=== PATIENT | female | born 1935 | race Two or more races ===

== ENCOUNTER 2020-03-26 21:16 | Inpatient (IN) | payer MEDICARE, MEDICAID ==
[~2020-03-26] VITALS: Ht 157.5 cm; Wt 52.1 kg
[2020-03-26] MEDS ORDERED: SODIUM CHLORIDE 0.9% 500 ML IV ONE (22:00)
[2020-03-26] MEDS ORDERED: MORPHINE SULFATE 4 MG/ML SYR/VIAL IV ONE (22:00)
[2020-03-26] MEDS ORDERED: InsuLIN REG 1unit/0.01ml Soln (100units/ml) IV ONE (22:00)
[2020-03-26] MEDS ORDERED: cloNIDine HCL 0.1 MG TAB PO ONE (22:00)
[2020-03-26] MEDS ORDERED: ACCU-CHEK COMFORT CURVE STRIP VI ONE (22:15)
[2020-03-26] MEDS ORDERED: MORPHINE SULF INJ 2 MG/ML SYRINGE 1ML IV ONE (23:45)
[2020-03-27 00:32] LABS: Basophils # (auto) 0.1 10 ^3/uL (0-0.2); Basophils % (auto) 0.4 % (0.0-2.0); Eosinophils # (auto) 0.1 10 ^3/uL (0-0.8); Eosinophils % (auto) 0.6 % (0.0-7.0); Hemoglobin 12.8 g/dL (12.2-16.2); Lymphocytes # (auto) 1.7 10 ^3/uL (0.4-5.4); Lymphocytes % (auto) 12.2 % (10.0-50.0); Mean Corpuscular Hemoglobin 26.8 pg (28.0-32.0); Mean Corpuscular Hgb Conc. 32.1 g/dL (32.0-36.0); Mean Corpuscular Volume 83.2 fL (80.0-100.0); Monocytes # (auto) 0.6 10 ^3/uL (0-1.3); Monocytes % (auto) 4.4 % (0.0-12.0); Neutrophils # (auto) 11.5 10 ^3/uL (1.6-8.6); Neutrophils % (auto) 82.4 % (37.0-80.0); Platelet Count (auto) 270 10^3/uL (140-450); Red Cell Distribution Width 14.1 % (11.8-14.3)
[2020-03-27 00:49] LABS: Urine Bacteria FEW /hpf (None Seen); Urine Blood Negative /uL (Negative); Urine Specific Gravity 1.026 (1.001-1.035); Urine WBC 6 /hpf (0 - 5)
[2020-03-27 00:50] LABS: Calcium 8.3 mg/dL (8.5-10.1); Potassium 4.1 mmol/L (3.5-5.1)
[2020-03-27 00:55] LABS: Bilirubin, Total 0.5 mg/dL (0.2-1.0); Total Protein 6.7 g/dL (6.4-8.2)
[2020-03-27] MEDS ORDERED: cefTRIAXone 1GM/50ML D5W 50 ML IV ONE (01:00)
[2020-03-27] MEDS ORDERED: MORPHINE SULFATE 4 MG/ML SYR/VIAL IV ONE (02:15)
[2020-03-27] MEDS ORDERED: cloNIDine HCL 0.1 MG TAB PO PRN (02:30)
[2020-03-27] MEDS ORDERED: DEXTROSE (50%) 50ML SYRG IV PRN ×2 (02:30→12:00)
[2020-03-27] MEDS ORDERED: ACETAMINOPHEN 325 MG TAB PO PRN (02:30)
[2020-03-27] MEDS ORDERED: ONDANSETRON HCL 4 MG/2 ML VIAL IV PRN (02:30)
[2020-03-27 04:00] VITALS: BP 152/59
[2020-03-27] MEDS: MORPHINE SULFATE 4 MG/ML SYR/VIAL IV PRN ×3 (04:03→23:15)
[2020-03-27] MEDS: TEMAZEPAM 15 MG CAP PO PRN ×2 (04:04→22:48)
[2020-03-27] MEDS ORDERED: InsuLIN REG 1unit/0.01ml Soln (100units/ml) SC SCH (06:00)
[2020-03-27] MEDS ORDERED: ACCU-CHEK COMFORT CURVE STRIP VI SCH (06:00)
[2020-03-27 06:02] VITALS: BP 152/54
--- NOTE | 2020-03-27 07:07 | NUR ---
PATIENT WAS ADMITTED FROM THE ER AT 0400. SHE ARRIVED IN [place] AT THE L HIP AND WAS MEDICATED. SHE HAD FALLEN THE DAY BEFORE AND INJURED HER LEFT HIP NOW DIAGNOSED INTRATRONCHANTERIC FRACTURE. PATIENT WAS UNABLE TO GIVE PRECISE HISTORY. SHE WAS HOWEVER ALERT AND ORIENTED X 4. SHE HAD NO OTHER INJURIES. SHE IS SCHEDULED FOR CARDIAC AND ORTHOPEDIC CONSULTS. PATIENT'S DAUGHTER CALLED AT 0600 AND LEFT HER PHONE NUMBER TO BE CONTACTED AFTER THE SURGEON MAY HAVE TAKEN A DECISION TO PRICISE TREATMENT. PATIENT IS NOW SLEEPING AND COMFORTABLE.
--- NOTE | 2020-03-27 07:30 | NUR ---
OPENING SHIFT NOTE Patient comfortably resting in bed, denies pain at this time, AOx4. No S/S of distress noted. Wahl secured below waistline draining clear yellow urine. Bed in low position, Locked and call light within reach. Will continue care.
--- NOTE | 2020-03-27 08:15 | NUR ---
Spoke with Family Spoke with Joan patient's daughter requesting update on mom and wanted to know if patient had been seen by MD. Joan informed patient was seen and admitted by ER doctor and will be seen by hospitalist once they come in for the day. Daughter verbalized understanding.
[2020-03-27 09:00] VITALS: BP 112/56
[2020-03-27] MEDS: FAMOTIDINE 20 MG TAB PO SCH ×2 (11:30→21:15)
[2020-03-27] MEDS: LISINOPRIL 10 MG TAB PO SCH (11:31)
[2020-03-27] MEDS: ACCU-CHEK COMFORT CURVE STRIP VI SCH ×2 (12:00→18:12)
[2020-03-27] MEDS: InsuLIN REG 1unit/0.01ml Soln (100units/ml) SC SCH ×2 (12:30→18:13)
[2020-03-27 13:00] VITALS: BP 118/51
--- NOTE | 2020-03-27 15:00 | NUR ---
Spoke with family Spoke with patient's daughter Joan. Update given regarding patient being seen by Career Development Counselor and needed tests ordered to obtain cardiac Clearance. Joan informs me mom suffers of mild dementia and is not able to fully understand procedures needed or ssurgery information. Joan requesting to speak with the Orthopedic doctor that is on her mom's case. MD [place] paged at this time, message left, awaiting call back.
[2020-03-27 17:00] VITALS: BP 132/53
--- NOTE | 2020-03-27 20:30 | NUR ---
UPDATED FAMILY DAUGHTER YAMILA MCKINNON REGARDING PATIENT PLAN OF CARE.
--- NOTE | 2020-03-27 21:00 | NUR ---
UPDATED FAMILY DAUGHTER MELISSA HAJI PATIENT PLAN OF CARE
[2020-03-27] MEDS: HYDROcodone-ACET 5/325MG TAB PO PRN (21:16)
[2020-03-27 22:00] VITALS: BP 144/47
--- NOTE | 2020-03-27 22:05 | NUR ---
OBTAINED TELEPHONE CONSENT FROM DAUGHTER YAMILA ALVES ALLOWING DR SHENG CASTELLANOS TO PERFROM OPEN REDUCTION INTERNAL FIXATION OF LEFT HIP FRACTURE OF PATIENT JOELLE HAJI UNDER ANESTHISIA AND PATIENT MAY RECEIVE BLOOD AND BLOOD PRODUCTS IF PATIENT REQUIRES TRANSFUSION, TELEPHONE CONSENT WITNESSE BY NURSE MARC VIA TELEPHONE. CONSENTS WITNESSED AND SIGNED PLACED IN CHART. TAMMIE ALVES IS WELL INFORMED AND NO FURTHER QUESTIONS AT THIS TIME.
[2020-03-28] MEDS: MORPHINE SULFATE 4 MG/ML SYR/VIAL IV PRN ×3 (03:46→20:30)
[2020-03-28 05:14] VITALS: BP 125/40
[2020-03-28 06:30] LABS: Basophils # (auto) 0 10 ^3/uL (0-0.2); Basophils % (auto) 0.3 % (0.0-2.0); Eosinophils # (auto) 0.1 10 ^3/uL (0-0.8); Eosinophils % (auto) 0.5 % (0.0-7.0); Hematocrit 36.3 % (36.0-46.0); Hemoglobin 11.7 g/dL (12.2-16.2); Lymphocytes # (auto) 1.5 10 ^3/uL (0.4-5.4); Lymphocytes % (auto) 13.4 % (10.0-50.0); Mean Corpuscular Hemoglobin 27.2 pg (28.0-32.0); Mean Corpuscular Hgb Conc. 32.2 g/dL (32.0-36.0); Mean Corpuscular Volume 84.3 fL (80.0-100.0); Monocytes # (auto) 0.9 10 ^3/uL (0-1.3); Monocytes % (auto) 7.7 % (0.0-12.0); Neutrophils # (auto) 8.6 10 ^3/uL (1.6-8.6); Neutrophils % (auto) 78.1 % (37.0-80.0); Platelet Count (auto) 210 10^3/uL (140-450); Red Blood Cells 4.31 10^6/uL (4.0-5.20); Red Cell Distribution Width 14.1 % (11.8-14.3)
[2020-03-28] MEDS: ACCU-CHEK COMFORT CURVE STRIP VI SCH ×5 (06:30→23:12)
[2020-03-28] MEDS: InsuLIN REG 1unit/0.01ml Soln (100units/ml) SC SCH ×5 (06:31→23:11)
[2020-03-28 06:50] LABS: Potassium 4.7 mmol/L (3.5-5.1)
[2020-03-28 07:12] LABS: BUN/Creatinine Ratio 20.4; Calcium 8.3 mg/dL (8.5-10.1)
[2020-03-28] MEDS ORDERED: ceFAZolin 1GM/50ML 50 ML IV ONE (07:12)
--- NOTE | 2020-03-28 07:30 | NUR ---
Opening Shift Note ASSUMED CARE OF PATIENT WHO IS IN OR FOR LEFT HIP OPEN REDUCTION INTERNAL FIXATION WITH DR. CASTELLANOS. WILL AWAIT PATIENT TO RETURN FROM OR.
[2020-03-28] MEDS ORDERED: SUCCINYLCHOLINE CHLORIDE 20 MG/ML 10ML VIAL IV ONE (07:33)
[2020-03-28] MEDS ORDERED: ROCURONIUM 10MG/ML 10ML VIAL IV ONE (07:34)
[2020-03-28] MEDS ORDERED: fentaNYL CITRATE 100 MCG/2 ML VL ONE (07:34)
[2020-03-28] MEDS ORDERED: PROPOFOL 10 MG/ML 20 ML IV ONE (07:49)
[2020-03-28] MEDS ORDERED: BUPIVACAINE W/ EPINEPH 0.25% INJ 50ML MDV ONE (08:20)
[2020-03-28] MEDS ORDERED: LACTATED RINGER'S 1,000 ML IV SCH (08:34)
[2020-03-28] MEDS: ceFAZolin 1GM/50ML 50 ML IV SCH ×3 (08:45→20:47)
[2020-03-28] MEDS ORDERED: ONDANSETRON HCL 4 MG/2 ML VIAL IV PRN (09:00)
[2020-03-28] MEDS ORDERED: hydrALAZINE HCL 20 MG/ML VL IV PRN (09:00)
[2020-03-28] MEDS ORDERED: ePHEDrine SULFATE 50 MG/ML AMP IV PRN (09:00)
[2020-03-28] MEDS ORDERED: MORPHINE SULFATE 4 MG/ML SYR/VIAL IV PRN (09:00)
[2020-03-28] MEDS ORDERED: cefTRIAXone 1GM/50ML D5W 50 ML IV SCH (09:00)
--- NOTE | 2020-03-28 09:36 | NUR ---
OR REPORT RECEIVED REPORT FROM TRAFFIC COURT MAGISTRATEABAD SOSA. PATIENT HAD A LEFT HIP INTERNAL FIXATION WITH DR. CASTELLANOS. PATIENT HAD GENERAL ANESTHESIA. LEFT HIP DRESSING IS DRY AND INTACT. GIVEN 1 MG OF MORPHINE FOR PAIN. BS WAS 262 NO COVERAGE GIVEN PER MD ORDER. VS INCLUDED BP 134/47, HR 83, SPO2 95% RA, PATIENT IS DROWSY BUT AWAKE TO NAME. WILL AWAIT PATIENT.
--- NOTE | 2020-03-28 09:45 | NUR ---
BACK FROM OR PATIENT WAS ASSESSED FROM OR TRANSPORT. PATIENT TOLERATED TRANSPORT WITH NO SIGNS OF DISTRESS OR SOB. PATIENT LEFT HIP DRESSING IS CLEAN DRY AND INTACT. PATIENT WAS PLACED ON 2L NC O2 FOR COMFORT. PATIENT DID NOT COMPLAIN OF PAIN OR DISCOMFORT. PATIENT WILL BE CONTINUED TO BE MONITOR.
[2020-03-28 13:00] VITALS: BP 132/55
[2020-03-28] MEDS: LISINOPRIL 10 MG TAB PO SCH (13:10)
[2020-03-28] MEDS: FAMOTIDINE 20 MG TAB PO SCH ×2 (13:10→20:47)
[2020-03-28] MEDS: ENOXAPARIN SOD 40 MG/0.4 ML SYRINGE SC SCH (13:11)
[2020-03-28] MEDS: SODIUM CHLOR 0.9% PF (SALINE LOCK) 10ML VIAL/SYR IV SCH ×2 (14:48→20:47)
[2020-03-28] MEDS: LACTATED RINGER'S 1,000 ML IV SCH (15:15)
[2020-03-28 17:00] VITALS: BP 116/56
[2020-03-28 22:00] VITALS: BP 127/52
[2020-03-28] MEDS: HYDROcodone-ACET 5/325MG TAB PO PRN (23:12)
[2020-03-28] MEDS: INSULIN LANTUS (GLARGINE) 1 /0.01ml (100units/ml) SC SCH (23:13)
[2020-03-29] MEDS: LACTATED RINGER'S 1,000 ML IV SCH (04:55)
[2020-03-29 05:00] VITALS: BP 141/54
[2020-03-29] MEDS: SODIUM CHLOR 0.9% PF (SALINE LOCK) 10ML VIAL/SYR IV SCH ×3 (05:13→19:50)
[2020-03-29] MEDS: ACCU-CHEK COMFORT CURVE STRIP VI SCH ×3 (05:43→18:02)
[2020-03-29] MEDS: InsuLIN REG 1unit/0.01ml Soln (100units/ml) SC SCH ×3 (05:45→18:02)
[2020-03-29 05:48] LABS: Basophils # (auto) 0 10 ^3/uL (0-0.2); Basophils % (auto) 0.3 % (0.0-2.0); Eosinophils # (auto) 0 10 ^3/uL (0-0.8); Eosinophils % (auto) 0.4 % (0.0-7.0); Hematocrit 31.2 % (36.0-46.0); Hemoglobin 10.1 g/dL (12.2-16.2); Lymphocytes # (auto) 2.5 10 ^3/uL (0.4-5.4); Mean Corpuscular Hemoglobin 27.1 pg (28.0-32.0); Mean Corpuscular Hgb Conc. 32.3 g/dL (32.0-36.0); Mean Corpuscular Volume 83.8 fL (80.0-100.0); Monocytes % (auto) 8.8 % (0.0-12.0); Neutrophils # (auto) 8.3 10 ^3/uL (1.6-8.6); Neutrophils % (auto) 69.5 % (37.0-80.0); Platelet Count (auto) 195 10^3/uL (140-450); Red Blood Cells 3.72 10^6/uL (4.0-5.20); Red Cell Distribution Width 14.2 % (11.8-14.3); White Blood Cell 11.9 10^3/uL (4.4-10.8)
[2020-03-29 06:12] LABS: Calcium 7.7 mg/dL (8.5-10.1); Potassium 3.5 mmol/L (3.5-5.1)
--- NOTE | 2020-03-29 07:30 | NUR ---
Opening Shift Note Assumed care of patient, awake and alert. No S/S of distress/SOB or pain. Instructed on POC and to call for assist PRN, will continue to monitor for changes Q1hr and PRN. Bed is locked and in lowest position. Bed alarm is on due to patients period of confusion. Call light within reach.
[2020-03-29 08:00] VITALS: BP 128/64
[2020-03-29] MEDS: HYDROcodone-ACET 5/325MG TAB PO PRN (08:49)
[2020-03-29] MEDS ORDERED: INSLANTI SC ×2 (08:58)
[2020-03-29] MEDS ORDERED: LISI-646 PO (08:58)
[2020-03-29 09:00] VITALS: BP 128/64
--- NOTE | 2020-03-29 09:00 | NUR ---
DRESSING CHANGED DRESSING CHANGED OF LEFT HIP OR. INCISIONS APPEAR WELL APPROXIMATED WITH ADAMA. THERE IS A TOTAL OF THREE INCISION SITES. NO SIGNS OF INFECTION. PATIENT TOLERATED DRESSING CHANGE WITH NO SIGNS OF DISTRESS OR PAIN. A TOTAL OF TWO PRIMAFORM DRESSINGS APPLIED TO INCISION SITES. WILL CONTINUE TO MONITOR.
[2020-03-29] MEDS: FAMOTIDINE 20 MG TAB PO SCH ×2 (10:22→19:50)
[2020-03-29] MEDS: ENOXAPARIN SOD 40 MG/0.4 ML SYRINGE SC SCH (10:23)
[2020-03-29] MEDS: LISINOPRIL 10 MG TAB PO SCH (10:23)
[2020-03-29] MEDS ORDERED: traMADol HCL 50 MG TAB PO PRN (12:30)
[2020-03-29] MEDS ORDERED: ZOLPIDEM TARTRATE 5 MG TAB PO PRN (12:30)
[2020-03-29 13:00] VITALS: BP 114/48
--- NOTE | 2020-03-29 14:12 | NUR ---
assessment re: ss consult DC planning. Patient is a 84 year old female who is confused. Per patients daughter Joan prior to admission patient lived home with her and her and functioned with assistance. Per Joan patient has never needed any DME. Per Joan patient fell at home after returning from the store with family. Patient has fractured her hip. Per Joan patient will return home on discharge. Per Joan she has refused SNF. Patient will need a ss consult for home health and a fww. I have provided Joan resources for [facility]. Per Joan they are new to the area. Per Joan Patients PCP is Dr Carlo Clifton in [place]. I will informed Dr Lynn of ss consult need. Joan verbalized understanding and agreed to discharge plan home. Addendum: 03/29/20 at 1417 by Lizzy DRISCOLL Amended: Links added.
--- NOTE | 2020-03-29 15:50 | NUR ---
DAUGHTER YAMILA PHONE CALL RECEIVED FROM DAUGHTER YAMILA REGARDING POC OF PATIENT. DAUGHTER WOULD LIKE PATIENT DC HOME NOT TO A FPC, DAUGHTER WILL BE SOLUTION COORDINATOR. DAUGHTER REQUESTED EQUIPMENT FOR PATIENT SUCH WALKER AND TOILET COMMODE. WILL AWAIT ORDERS FOR DC AND CANCELING MACHINE OPERATOR.
[2020-03-29 16:28] VITALS: BP 114/61
--- NOTE | 2020-03-29 17:45 | NUR ---
CURRAN DC CURRAN WAS DC WITH CLEAN TECHNIQUE BASED ON DR. PAULINO ORDERS. CURRAN WAS INTACT. NO SIGNS OF INFECTION. PATIENT TOLERATED CURRAN REMOVAL WELL WITH NO PAIN OR SIGNS OF DISTRESS. WILL CONTINUE TO MONITOR URINE OUTPUT.
[2020-03-29] MEDS: MORPHINE SULFATE 4 MG/ML SYR/VIAL IV PRN (19:50)
[2020-03-29] MEDS: TEMAZEPAM 15 MG CAP PO PRN (21:09)
[2020-03-29] MEDS: traMADol HCL 50 MG TAB PO PRN (21:24)
[2020-03-29] MEDS: INSULIN LANTUS (GLARGINE) 1 /0.01ml (100units/ml) SC SCH (21:37)
[2020-03-29 22:00] VITALS: BP 131/55
[2020-03-30] MEDS: ACCU-CHEK COMFORT CURVE STRIP VI SCH ×4 (00:19→17:38)
[2020-03-30 05:00] VITALS: BP 113/47
[2020-03-30] MEDS: SODIUM CHLOR 0.9% PF (SALINE LOCK) 10ML VIAL/SYR IV SCH ×3 (05:48→21:42)
[2020-03-30] MEDS: InsuLIN REG 1unit/0.01ml Soln (100units/ml) SC SCH ×4 (05:54→17:48)
--- NOTE | 2020-03-30 07:30 | NUR ---
Opening Shift Note Assumed care of patient, resting comfortably. No S/S of distress/SOB or pain on room air. Instructed on POC and to call for assist PRN, will continue to monitor for changes Q1hr and PRN. Bed in low and locked position, rails up x2, no-slip socks on.
--- NOTE | 2020-03-30 08:21 | NUR ---
REPORT RECEIVED from Alisa. Assumed care of patient. Patient is sitting in the chair at bedside. She was updated on the plan of care and verbalized understanding. Patient was encouraged to call before ambulation and verbalized understanding.
[2020-03-30] MEDS: traMADol HCL 50 MG TAB PO PRN (08:58)
[2020-03-30 09:00] VITALS: BP 133/51
[2020-03-30] MEDS: ENOXAPARIN SOD 40 MG/0.4 ML SYRINGE SC SCH (09:41)
[2020-03-30] MEDS: FAMOTIDINE 20 MG TAB PO SCH ×2 (09:43→21:34)
[2020-03-30] MEDS: LISINOPRIL 10 MG TAB PO SCH (09:43)
--- NOTE | 2020-03-30 10:20 | NUR ---
PATIENT WORKING WITH PT Per annelise patient walked 4ft and is back in the chair at bedside.
--- NOTE | 2020-03-30 12:36 | NUR ---
Est energy needs [id number] kcal (30-35 kcal/kg BW 50kg) Est protein need 50-60g (1-1.2g/kg BW 50kg d/t inc needs for healing) will reassess prn. Addendum: 03/30/20 at [address] Amended: Links added.
[2020-03-30 13:04] VITALS: BP 137/58
--- NOTE | 2020-03-30 14:51 | NUR ---
re-assessment Per ss consult home PT. Per Joan patients daughter she has no preference on who provides service. MD order has been sent to [facility]. Per Quincy she will schedule patient for 04/01/2020. Joan has been notified. Addendum: 03/30/20 at 1452 by Lizzy Franklin Amended: Links added.
--- NOTE | 2020-03-30 14:51 | NUR ---
D/C Planning Regarding SS consult for home walker. faxed clinical information to [facility]. Per Keely with [facility] they will deliver walker to bedside at 15:00. Informed RN Francine.
--- NOTE | 2020-03-30 15:43 | NUR ---
WALKER DELIVERED TO BEDSIDE
[2020-03-30 16:42] VITALS: BP 116/54
--- NOTE | 2020-03-30 21:05 | NUR ---
Patient was trying to get out of bed. Upon speaking to her she stated she was trying to stand up. I reoriented patient that she was in hospital and just had a procedure done to her left hip and advised her to stay in bed unless she calls for help first. Bed alarm placed on. Will continue to monitor.
[2020-03-30] MEDS: TEMAZEPAM 15 MG CAP PO PRN (21:35)
[2020-03-30] MEDS: INSULIN LANTUS (GLARGINE) 1 /0.01ml (100units/ml) SC SCH (21:42)
[2020-03-30 22:00] VITALS: BP 135/60
[2020-03-31] MEDS: ACCU-CHEK COMFORT CURVE STRIP VI SCH ×3 (00:16→11:45)
--- NOTE | 2020-03-31 00:19 | NUR ---
Upon checking on patient she had removed IV and was lying on floor. IV catheter tip was still intact.
--- NOTE | 2020-03-31 02:05 | NUR ---
IV insertion IV access obtained, via clean sterile technique by inserting 22 gauge catheter at left wrist after 2 attempts. IV secured properly. No trauma to site. Patient tolerated procedure well.
[2020-03-31] MEDS: MORPHINE SULFATE 4 MG/ML SYR/VIAL IV PRN (03:04)
[2020-03-31 05:00] VITALS: BP 136/67
[2020-03-31] MEDS: InsuLIN REG 1unit/0.01ml Soln (100units/ml) SC SCH ×2 (06:00)
[2020-03-31] MEDS: SODIUM CHLOR 0.9% PF (SALINE LOCK) 10ML VIAL/SYR IV SCH (06:05)
--- NOTE | 2020-03-31 07:30 | NUR ---
Opening Shift Note Assumed care of patient, awake and pleasantly confused. No S/S of distress/SOB or pain. Instructed on POC and to call for assist PRN, will continue to monitor for changes Q1hr and PRN.
--- NOTE | 2020-03-31 07:35 | NUR ---
Patient has no IV access at this time. Will start new IV if patient is not discharged.
[2020-03-31 09:00] VITALS: BP 126/59
[2020-03-31] MEDS: ENOXAPARIN SOD 40 MG/0.4 ML SYRINGE SC SCH (10:13)
[2020-03-31] MEDS: FAMOTIDINE 20 MG TAB PO SCH (10:13)
[2020-03-31] MEDS: LISINOPRIL 10 MG TAB PO SCH (10:14)
[2020-03-31] MEDS: traMADol HCL 50 MG TAB PO PRN (11:46)
[2020-03-31 13:00] VITALS: BP 132/66
--- NOTE | 2020-03-31 14:10 | NUR ---
Dr. Lynn in to see patient as hospitalist.
[2020-03-31 14:26] VITALS: BP 136/66
--- NOTE | 2020-03-31 15:55 | NUR ---
Spoke with patient's daughter Joan. Informed her that the discharge is completed and she can come take patient home. Joan states she needs a wheel chair to get the patient from the car to the house and she was told she could borrow one from the hospital. Joan was informed that the walker has been delivered to the bedside. Informed Joan that the hospital does not lend out wheelchairs. This RN offered to speak with Dr. Lynn and see if we can get a wheelchair for home. Explained to Joan that it might take until tomorrow to get the wheelchair. Daughter angry, states she will come and get the patient and if anything happens when she gets home she will blame us. Dr. Lynn informed. He states that insurance will pay for only one DME. Will inform the patient's daughter.
--- NOTE | 2020-03-31 17:10 | NUR ---
Discharge instructions given as ordered. Encourage to follow up with PMD as instructed. All questions and concerns addressed. Patient verbalized understanding. Medication reconciliation form completed and copy given to patient. Patient taken to vehicle via wheelchair with all personal belongings, accompanied by staff and family member. No distress noted at time of departure. Walker sent home with patient.
== END 2020-03-31 17:11 | disposition home health service (06) | DRG 481 ==
LOC: EDBD 21:16 → ER 21:29 → WEST WING 21:30
PROVIDERS: ADMIT Nurse Practitioner; ATTEND Internal Medicine
PROC: 0QS734Z Reposition Left Upper Femur with Internal Fixation Device, Percutaneous Approach (ICD-10-PCS; principal; 2020-03-28 07:31)
DX: S72.142A Displaced intertrochanteric fracture of left femur, initial encounter for closed fracture (principal); N39.0 Urinary tract infection, site not specified; E11.65 Type 2 diabetes mellitus with hyperglycemia; I10 Essential (primary) hypertension; I44.7 Left bundle-branch block, unspecified; I70.0 Atherosclerosis of aorta; Z79.4 Long term (current) use of insulin; Z79.899 Other long term (current) drug therapy; Z20.828 Contact with and (suspected) exposure to other viral communicable diseases; W18.30XA Fall on same level, unspecified, initial encounter; Y93.89 Activity, other specified; Y92.89 Other specified places as the place of occurrence of the external cause; Y99.0 Civilian activity done for income or pay
CPT/HCPCS: 36415; 71045; 73502; 76000; 80048; 80053; 81001; 82962; 83036; 83880; 85025; 85610; 85730; 86850; 86900; 86901; 87086; 93005; 93306; 96365; 96375; 97110; 97116; 97163; 97530; A4565; C1713; G0378; J0330; J0690; J0696; J1815; J2405; J2704

== ENCOUNTER 2020-05-15 18:11 | Inpatient (IN) | payer MEDICARE, MEDICAID ==
[~2020-05-15] VITALS: Ht 162.6 cm; Wt 51.0 kg
[~2020-05-15 18:11] MED LIST: INSLANTI SC; LISI-646 PO
[2020-05-15 20:54] LABS: Eosinophils # (auto) 0.1 10 ^3/uL (0-0.8); Eosinophils % (auto) 1.4 % (0.0-7.0); Hematocrit 39.6 % (36.0-46.0); Lymphocytes # (auto) 2.2 10 ^3/uL (0.4-5.4)
[2020-05-15 20:56] LABS: Basophils # (auto) 0 10 ^3/uL (0-0.2); Basophils % (auto) 0.4 % (0.0-2.0); Hemoglobin 12.9 g/dL (12.2-16.2); Lymphocytes % (auto) 21.2 % (10.0-50.0); Mean Corpuscular Hemoglobin 27.3 pg (28.0-32.0); Mean Corpuscular Hgb Conc. 32.5 g/dL (32.0-36.0); Mean Corpuscular Volume 83.9 fL (80.0-100.0); Monocytes # (auto) 0.8 10 ^3/uL (0-1.3); Monocytes % (auto) 7.4 % (0.0-12.0); Neutrophils # (auto) 7.3 10 ^3/uL (1.6-8.6); Neutrophils % (auto) 69.6 % (37.0-80.0); Platelet Count (auto) 323 10^3/uL (140-450); Red Blood Cells 4.73 10^6/uL (4.0-5.20); Red Cell Distribution Width 14.1 % (11.8-14.3); White Blood Cell 10.4 10^3/uL (4.4-10.8)
[2020-05-15 21:04] LABS: Albumin 3.2 g/dL (3.4-5.0); Calcium 8.9 mg/dL (8.5-10.1); Potassium 3.8 mmol/L (3.5-5.1)
[2020-05-15 21:08] LABS: BUN/Creatinine Ratio 19.4; Bilirubin, Total 0.6 mg/dL (0.2-1.0); INR 1.14 (0.9-1.15); Partial Thromboplastin Time 28.5 sec (23.0-31.2); Total Protein 7.5 g/dL (6.4-8.2)
[2020-05-15] MEDS ORDERED: IOHEXOL 350 MG/ML 100ML IJ ONE (21:35)
[2020-05-15] MEDS ORDERED: ENOXAPARIN SOD 60 MG/0.6 ML SYRINGE SC SCH (22:00)
[2020-05-15] MEDS ORDERED: ONDANSETRON HCL 4 MG/2 ML VIAL IV PRN (22:15)
[2020-05-15] MEDS ORDERED: ACETAMINOPHEN 325 MG TAB PO PRN (22:15)
[2020-05-15] MEDS ORDERED: DEXTROSE (50%) 50ML SYRG IV PRN (22:15)
[2020-05-15] MEDS ORDERED: TEMAZEPAM 15 MG CAP PO PRN (22:15)
[2020-05-15] MEDS ORDERED: HYDROcodone-ACET 5/325MG TAB PO PRN (22:15)
[2020-05-16] VITALS (7 sets, daily range): BP systolic 118–133; BP diastolic 41–70
[2020-05-16] MEDS ORDERED: ATOR10TA PO (01:23)
[2020-05-16] MEDS ORDERED: ASPI-543 PO (01:23)
[2020-05-16 05:36] LABS: Basophils # (auto) 0.1 10 ^3/uL (0-0.2); Basophils % (auto) 0.6 % (0.0-2.0); Hemoglobin 12.5 g/dL (12.2-16.2); Monocytes # (auto) 0.7 10 ^3/uL (0-1.3); Red Blood Cells 4.65 10^6/uL (4.0-5.20)
[2020-05-16 05:39] LABS: Eosinophils # (auto) 0.1 10 ^3/uL (0-0.8); Eosinophils % (auto) 1.6 % (0.0-7.0); Hematocrit 38.8 % (36.0-46.0); Lymphocytes # (auto) 2.5 10 ^3/uL (0.4-5.4); Lymphocytes % (auto) 27.8 % (10.0-50.0); Mean Corpuscular Hgb Conc. 32.3 g/dL (32.0-36.0); Mean Corpuscular Volume 83.6 fL (80.0-100.0); Monocytes % (auto) 7.9 % (0.0-12.0); Neutrophils # (auto) 5.6 10 ^3/uL (1.6-8.6); Neutrophils % (auto) 62.1 % (37.0-80.0); Platelet Count (auto) 312 10^3/uL (140-450); Red Cell Distribution Width 14.6 % (11.8-14.3)
[2020-05-16] MEDS ORDERED: ENOXAPARIN SOD 60 MG/0.6 ML SYRINGE SC SCH (05:45)
[2020-05-16 05:54] LABS: Calcium 8.8 mg/dL (8.5-10.1); Potassium 3.7 mmol/L (3.5-5.1)
[2020-05-16] MEDS: ACCU-CHEK COMFORT CURVE STRIP VI SCH ×4 (06:38→21:28)
[2020-05-16] MEDS: InsuLIN REG 1unit/0.01ml Soln (100units/ml) SC SCH ×4 (06:38→21:33)
[2020-05-16] MEDS: LISINOPRIL 10 MG TAB PO SCH (10:46)
[2020-05-16] MEDS: ENOXAPARIN SOD 60 MG/0.6 ML SYRINGE SC SCH ×2 (10:47→21:29)
[2020-05-16] MEDS: FAMOTIDINE 20 MG TAB PO SCH (10:47)
[2020-05-16] MEDS: ATORVASTATIN 20 MG TAB PO SCH (21:28)
[2020-05-17 04:52] VITALS: BP 99/55
[2020-05-17] MEDS: InsuLIN REG 1unit/0.01ml Soln (100units/ml) SC SCH ×4 (07:00→22:34)
[2020-05-17] MEDS: ACCU-CHEK COMFORT CURVE STRIP VI SCH ×4 (07:02→22:24)
[2020-05-17 08:00] VITALS: BP 133/62
[2020-05-17 09:00] VITALS: BP 117/49
[2020-05-17] MEDS: LISINOPRIL 10 MG TAB PO SCH (10:00)
[2020-05-17] MEDS: FAMOTIDINE 20 MG TAB PO SCH (10:28)
[2020-05-17] MEDS: ENOXAPARIN SOD 60 MG/0.6 ML SYRINGE SC SCH ×2 (10:28→22:07)
[2020-05-17 12:00] VITALS: BP 128/67
[2020-05-17 17:00] VITALS: BP 115/54
[2020-05-17] MEDS: ATORVASTATIN 20 MG TAB PO SCH (22:07)
[2020-05-18] MEDS: ACCU-CHEK COMFORT CURVE STRIP VI SCH ×2 (05:50→11:41)
[2020-05-18] MEDS: InsuLIN REG 1unit/0.01ml Soln (100units/ml) SC SCH ×2 (05:50→11:30)
[2020-05-18 09:00] VITALS: BP 131/50
[2020-05-18] MEDS ORDERED: APIXABAN 5 MG TAB PO SCH (10:00)
[2020-05-18] MEDS: LISINOPRIL 10 MG TAB PO SCH (10:27)
[2020-05-18] MEDS: FAMOTIDINE 20 MG TAB PO SCH (10:27)
[2020-05-18 13:00] VITALS: BP 134/53
[2020-05-18 14:42] VITALS: BP 131/50
== END 2020-05-18 15:30 | disposition home or self-care (01) | DRG 301 ==
LOC: ER 18:11 → OVERFLOW 18:12 → CENTRAL 23:30
PROVIDERS: ADMIT Nurse Practitioner; ATTEND Family Medicine
DX: I82.402 Acute embolism and thrombosis of unspecified deep veins of left lower extremity (principal); I10 Essential (primary) hypertension; E11.9 Type 2 diabetes mellitus without complications; E78.5 Hyperlipidemia, unspecified; Z96.642 Presence of left artificial hip joint
CPT/HCPCS: 36415; 71275; 80048; 80053; 82962; 85025; 85379; 85610; 85730; 93971; 96372; G0378; J1815

== ENCOUNTER → 2020-06-07 | Outpatient (CLI) | payer MEDICARE, MEDICAID ==
[~2020-06-07] MED LIST changes: +ASPI-543 PO; +ATOR10TA PO
[2020-06-07 10:02] LABS: Basophils # (auto) 0 10 ^3/uL (0-0.2); Basophils % (auto) 0.5 % (0.0-2.0); Eosinophils # (auto) 0.1 10 ^3/uL (0-0.8); Eosinophils % (auto) 1.6 % (0.0-7.0); Hematocrit 39.7 % (36.0-46.0); Lymphocytes # (auto) 2.4 10 ^3/uL (0.4-5.4); Lymphocytes % (auto) 27.6 % (10.0-50.0); Mean Corpuscular Hemoglobin 27.2 pg (28.0-32.0); Mean Corpuscular Hgb Conc. 32.6 g/dL (32.0-36.0); Mean Corpuscular Volume 83.4 fL (80.0-100.0); Monocytes # (auto) 0.5 10 ^3/uL (0-1.3); Monocytes % (auto) 5.9 % (0.0-12.0); Neutrophils # (auto) 5.7 10 ^3/uL (1.6-8.6); Neutrophils % (auto) 64.4 % (37.0-80.0); Platelet Count (auto) 275 10^3/uL (140-450); Red Blood Cells 4.76 10^6/uL (4.0-5.20); Red Cell Distribution Width 14.6 % (11.8-14.3); White Blood Cell 8.8 10^3/uL (4.4-10.8)
[2020-06-07 10:23] LABS: Albumin 3.4 g/dL (3.4-5.0); Calcium 9.2 mg/dL (8.5-10.1); Potassium 4.2 mmol/L (3.5-5.1)
[2020-06-07 10:26] LABS: Urine Bacteria NONE SEEN /hpf (None Seen); Urine Blood Negative /uL (Negative); Urine Specific Gravity 1.011 (1.001-1.035); Urine WBC 17 /hpf (0 - 5)
[2020-06-07 10:28] LABS: BUN/Creatinine Ratio 21.1; Bilirubin, Total 0.6 mg/dL (0.2-1.0); Total Protein 7.2 g/dL (6.4-8.2)
== END | disposition home or self-care (01) ==
LOC: LAB 09:48
PROVIDERS: ATTEND Student in an Organized Health Care Education/Training Program
DX: E11.9 Type 2 diabetes mellitus without complications (principal)
CPT/HCPCS: 36415; 80053; 80061; 81001; 82043; 83036; 84443; 85025

== ENCOUNTER → 2020-10-17 | Outpatient (CLI) | payer MEDICARE, MEDICAID | END | disposition home or self-care (01) | LOC: XY 13:35 | PROVIDERS: ATTEND Student in an Organized Health Care Education/Training Program | DX: I70.202 Unspecified atherosclerosis of native arteries of extremities, left leg (principal); I82.402 Acute embolism and thrombosis of unspecified deep veins of left lower extremity; M79.89 Other specified soft tissue disorders | CPT/HCPCS: 93926; 93971 ==

== ENCOUNTER → 2020-10-19 | Outpatient (CLI) | payer MEDICARE, MEDICAID ==
[2020-10-19 09:15] LABS: Basophils # (auto) 0.1 10 ^3/uL (0-0.2); Basophils % (auto) 0.7 % (0.0-2.0); Eosinophils # (auto) 0.2 10 ^3/uL (0-0.8); Eosinophils % (auto) 3.1 % (0.0-7.0); Hematocrit 38.6 % (36.0-46.0); Lymphocytes # (auto) 2.3 10 ^3/uL (0.4-5.4); Lymphocytes % (auto) 31.1 % (10.0-50.0); Mean Corpuscular Hgb Conc. 33.6 g/dL (32.0-36.0); Mean Corpuscular Volume 83.4 fL (80.0-100.0); Monocytes # (auto) 0.6 10 ^3/uL (0-1.3); Monocytes % (auto) 7.6 % (0.0-12.0); Neutrophils # (auto) 4.2 10 ^3/uL (1.6-8.6); Neutrophils % (auto) 57.5 % (37.0-80.0); Nucleated Red Blood Cells % 0.1 %; Platelet Count (auto) 278 10^3/uL (140-450); Red Blood Cells 4.62 10^6/uL (4.0-5.20); Red Cell Distribution Width 14.9 % (11.8-14.3); White Blood Cell 7.3 10^3/uL (4.4-10.8)
[2020-10-19 09:29] LABS: INR 1.02 (0.9-1.15); Partial Thromboplastin Time 25.8 sec (23.0-31.2)
[2020-10-19 10:03] LABS: Albumin 3.4 g/dL (3.4-5.0); Calcium 8.8 mg/dL (8.5-10.1); Potassium 4.6 mmol/L (3.5-5.1)
[2020-10-19 10:09] LABS: BUN/Creatinine Ratio 18.8; Bilirubin, Total 0.8 mg/dL (0.2-1.0); Total Protein 7.5 g/dL (6.4-8.2)
== END | disposition home or self-care (01) ==
LOC: LAB 08:59
PROVIDERS: ATTEND Student in an Organized Health Care Education/Training Program
DX: E11.9 Type 2 diabetes mellitus without complications (principal); I82.402 Acute embolism and thrombosis of unspecified deep veins of left lower extremity
CPT/HCPCS: 36415; 80053; 80061; 83036; 85025; 85610; 85730

== ENCOUNTER → 2021-03-26 | Outpatient (CLI) | payer MEDICARE, MEDICAID ==
[~2021-03-26] MED LIST changes: -LISI-646 PO; +LISI20TA28 PO
== END | disposition home or self-care (01) ==
LOC: XYW 09:34
PROVIDERS: ATTEND Internal Medicine
DX: I08.3 Combined rheumatic disorders of mitral, aortic and tricuspid valves (principal); I11.9 Hypertensive heart disease without heart failure
CPT/HCPCS: 93306

== ENCOUNTER → 2021-04-10 | Outpatient (CLI) | payer MEDICARE, MEDICAID ==
[~2021-04-10] VITALS: Ht 144.8 cm; Wt 49.9 kg
[~2021-04-10] MED LIST changes: +ADENOSINE 42 MG in GIVE UN-DILUTED 0 ML IV ONE
== END | disposition home or self-care (01) ==
LOC: XY 08:41
PROVIDERS: ATTEND Internal Medicine
DX: I10 Essential (primary) hypertension (principal); I70.0 Atherosclerosis of aorta; I73.9 Peripheral vascular disease, unspecified; E11.9 Type 2 diabetes mellitus without complications; F03.90 Unspecified dementia, unspecified severity, without behavioral disturbance, psychotic disturbance, mood disturbance, and anxiety
CPT/HCPCS: 78452; 93017; A9500; J0153

== ENCOUNTER → 2021-10-30 | Outpatient (CLI) | payer MEDICARE, OTHER ==
[~2021-10-30] MED LIST changes: -ADENOSINE 42 MG in GIVE UN-DILUTED 0 ML IV ONE
[2021-10-30 10:14] LABS: Urine Bacteria FEW /hpf (None Seen); Urine Blood Negative /uL (Negative); Urine Hyaline Cast FEW /lpf (0 - 2); Urine Mucus FEW (None Seen); Urine Specific Gravity 1.017 (1.001-1.035); Urine WBC 60 /hpf (0 - 5); Urine WBC Clumps PRESENT /hpf (None Seen)
[2021-10-30 12:40] LABS: Eosinophils # (auto) 0.1 10 ^3/uL (0-0.8); Eosinophils % (auto) 1.2 % (0.0-7.0); Lymphocytes # (auto) 2.8 10 ^3/uL (0.4-5.4); Monocytes # (auto) 0.7 10 ^3/uL (0-1.3); Neutrophils % (auto) 67.7 % (37.0-80.0)
[2021-10-30 12:47] LABS: Basophils # (auto) 0 10 ^3/uL (0-0.2); Basophils % (auto) 0.3 % (0.0-2.0); Hematocrit 41.6 % (36.0-46.0); Hemoglobin 13.4 g/dL (12.2-16.2); Lymphocytes % (auto) 24.7 % (10.0-50.0); Mean Corpuscular Hemoglobin 26.2 pg (28.0-32.0); Mean Corpuscular Hgb Conc. 32.3 g/dL (32.0-36.0); Mean Corpuscular Volume 81.3 fL (80.0-100.0); Monocytes % (auto) 6.1 % (0.0-12.0); Neutrophils # (auto) 7.7 10 ^3/uL (1.6-8.6); Red Blood Cells 5.11 10^6/uL (4.0-5.20); Red Cell Distribution Width 14.4 % (11.8-14.3); White Blood Cell 11.3 10^3/uL (4.4-10.8)
[2021-10-30 13:01] LABS: Potassium 4.4 mmol/L (3.5-5.1)
[2021-10-30 13:12] LABS: Albumin 3.2 g/dL (3.4-5.0); BUN/Creatinine Ratio 17.7; Bilirubin, Total 0.8 mg/dL (0.2-1.0); Calcium 9.2 mg/dL (8.5-10.1); Total Protein 6.8 g/dL (6.4-8.2)
== END | disposition home or self-care (01) ==
LOC: LAB 09:41
PROVIDERS: ATTEND Student in an Organized Health Care Education/Training Program
DX: E11.9 Type 2 diabetes mellitus without complications (principal); I10 Essential (primary) hypertension
CPT/HCPCS: 36415; 80053; 80061; 81001; 82043; 83036; 84443; 85025

== ENCOUNTER → 2022-03-12 | Outpatient (CLI) | payer MEDICARE, OTHER ==
[2022-03-12 13:35] LABS: Basophils # (auto) 0 10 ^3/uL (0-0.2); Basophils % (auto) 0.6 % (0.0-2.0); Eosinophils # (auto) 0 10 ^3/uL (0-0.8); Eosinophils % (auto) 0.2 % (0.0-7.0); Hematocrit 41.4 % (36.0-46.0); Hemoglobin 13.2 g/dL (12.2-16.2); Lymphocytes # (auto) 1.9 10 ^3/uL (0.4-5.4); Lymphocytes % (auto) 26.7 % (10.0-50.0); Mean Corpuscular Hemoglobin 26.3 pg (28.0-32.0); Mean Corpuscular Hgb Conc. 31.8 g/dL (32.0-36.0); Mean Corpuscular Volume 82.7 fL (80.0-100.0); Monocytes # (auto) 0.9 10 ^3/uL (0-1.3); Monocytes % (auto) 11.9 % (0.0-12.0); Neutrophils # (auto) 4.4 10 ^3/uL (1.6-8.6); Neutrophils % (auto) 60.6 % (37.0-80.0); Red Cell Distribution Width 14.5 % (11.8-14.3); White Blood Cell 7.3 10^3/uL (4.4-10.8)
[2022-03-12 14:27] LABS: Calcium 8.3 mg/dL (8.5-10.1); Potassium 4.1 mmol/L (3.5-5.1)
[2022-03-12 14:33] LABS: Albumin 3.4 g/dL (3.4-5.0); BUN/Creatinine Ratio 15.5; Bilirubin, Total 0.5 mg/dL (0.2-1.0); Total Protein 7.4 g/dL (6.4-8.2)
== END | disposition home or self-care (01) ==
LOC: LAB 13:23
PROVIDERS: ATTEND Student in an Organized Health Care Education/Training Program
DX: N39.0 Urinary tract infection, site not specified (principal); E11.9 Type 2 diabetes mellitus without complications; I10 Essential (primary) hypertension
CPT/HCPCS: 36415; 80053; 83036; 84439; 84443; 85025; 87086

== ENCOUNTER 2022-11-12 13:35 | Inpatient (IN) | payer MEDICARE, OTHER ==
[~2022-11-12] VITALS: Ht 142.2 cm; Wt 47.5 kg
[2022-11-12 15:01] LABS: Basophils # (auto) 0.1 10 ^3/uL (0-0.2); Basophils % (auto) 0.5 % (0.0-2.0); Hemoglobin 12.9 g/dL (12.2-16.2); Monocytes # (auto) 0.8 10 ^3/uL (0-1.3); Red Cell Distribution Width 14.5 % (11.8-14.3)
[2022-11-12 15:03] LABS: Eosinophils # (auto) 0.2 10 ^3/uL (0-0.8); Eosinophils % (auto) 1.9 % (0.0-7.0); Hematocrit 39.3 % (36.0-46.0); Lymphocytes # (auto) 2.4 10 ^3/uL (0.4-5.4); Lymphocytes % (auto) 20.5 % (10.0-50.0); Mean Corpuscular Hemoglobin 27.2 pg (28.0-32.0); Mean Corpuscular Hgb Conc. 32.9 g/dL (32.0-36.0); Mean Corpuscular Volume 82.6 fL (80.0-100.0); Monocytes % (auto) 7.3 % (0.0-12.0); Neutrophils # (auto) 8.1 10 ^3/uL (1.6-8.6); Neutrophils % (auto) 69.8 % (37.0-80.0); Red Blood Cells 4.77 10^6/uL (4.0-5.20); White Blood Cell 11.5 10^3/uL (4.4-10.8)
[2022-11-12 15:19] LABS: Albumin 3.2 g/dL (3.4-5.0); Calcium 8.9 mg/dL (8.5-10.1); Potassium 4.4 mmol/L (3.5-5.1)
[2022-11-12 15:22] LABS: BUN/Creatinine Ratio 18.2
[2022-11-12 15:25] LABS: Bilirubin, Total 0.6 mg/dL (0.2-1.0); Total Protein 6.8 g/dL (6.4-8.2)
[2022-11-12 17:04] LABS: INR 1.01 (0.9-1.15); Partial Thromboplastin Time 27.4 sec (24.6-33.4)
[2022-11-12] MEDS ORDERED: HYDROcodone-ACET 5/325MG TAB PO PRN (18:30)
[2022-11-12] MEDS ORDERED: ACETAMINOPHEN 325 MG TAB PO PRN (18:30)
[2022-11-12] MEDS ORDERED: DEXTROSE (50%) 50ML SYRG IV PRN (19:00)
[2022-11-12 19:44] LABS: Cholesterol 138 mg/dL (< 200); LDL Cholesterol 77 mg/dL (< 100); Triglycerides 119 mg/dL (< 150)
[2022-11-12 19:46] LABS: HDL Cholesterol 42 mg/dL (40-59)
[2022-11-12] MEDS: MORPHINE SULFATE INJ 2 MG/ml SYRG IV PRN (20:10)
[2022-11-12] MEDS ORDERED: INSULIN LANTUS (GLARGINE) 1 /0.01ml (100units/ml) SC SCH (22:00)
[2022-11-12] MEDS ORDERED: InsuLIN REG 1unit/0.01ml Soln (100units/ml) SC SCH (22:00)
[2022-11-12] MEDS: ATORVASTATIN 20 MG TAB PO SCH (23:18)
[2022-11-12] MEDS: ACCU-CHEK COMFORT CURVE STRIP VI SCH (23:19)
[2022-11-13 06:16] LABS: Basophils # (auto) 0.1 10 ^3/uL (0-0.2); Basophils % (auto) 0.6 % (0.0-2.0); Eosinophils # (auto) 0.3 10 ^3/uL (0-0.8); Eosinophils % (auto) 2.5 % (0.0-7.0); Hematocrit 35.9 % (36.0-46.0); Hemoglobin 12.6 g/dL (12.2-16.2); Lymphocytes # (auto) 3.2 10 ^3/uL (0.4-5.4); Lymphocytes % (auto) 29.5 % (10.0-50.0); Mean Corpuscular Hemoglobin 28.8 pg (28.0-32.0); Mean Corpuscular Hgb Conc. 35.2 g/dL (32.0-36.0); Mean Corpuscular Volume 81.8 fL (80.0-100.0); Monocytes % (auto) 9.4 % (0.0-12.0); Neutrophils # (auto) 6.3 10 ^3/uL (1.6-8.6); Nucleated Red Blood Cells % 0.1 %; Red Blood Cells 4.39 10^6/uL (4.0-5.20); Red Cell Distribution Width 14.1 % (11.8-14.3); White Blood Cell 10.8 10^3/uL (4.4-10.8)
[2022-11-13 06:28] LABS: Potassium 3.5 mmol/L (3.5-5.1)
[2022-11-13 06:32] LABS: Albumin 2.9 g/dL (3.4-5.0); Calcium 8.8 mg/dL (8.5-10.1)
[2022-11-13] MEDS: MORPHINE SULFATE INJ 2 MG/ml SYRG IV PRN ×2 (06:34→16:34)
[2022-11-13 06:35] LABS: Bilirubin, Total 0.5 mg/dL (0.2-1.0); Total Protein 6.6 g/dL (6.4-8.2)
[2022-11-13] MEDS: InsuLIN REG 1unit/0.01ml Soln (100units/ml) SC SCH ×3 (06:45→17:00)
[2022-11-13] MEDS: ACCU-CHEK COMFORT CURVE STRIP VI SCH ×4 (06:45→21:53)
[2022-11-13] MEDS ORDERED: INSULIN LANTUS (GLARGINE) 1 /0.01ml (100units/ml) SC SCH (08:00)
[2022-11-13] MEDS: ASPirin-EC 81 mg tab PO SCH (11:29)
[2022-11-13] MEDS: LISINOPRIL 20 MG TAB PO SCH (11:30)
[2022-11-13] MEDS: ENOXAPARIN SOD 30 MG/0.3 ML SYRINGE SC SCH (11:30)
[2022-11-13] MEDS: ATORVASTATIN 20 MG TAB PO SCH (21:59)
[2022-11-13] MEDS ORDERED: InsuLIN REG 1unit/0.01ml Soln (100units/ml) SC ONE (22:00)
[2022-11-13] MEDS: INSULIN LANTUS (GLARGINE) 1 /0.01ml (100units/ml) SC SCH (22:00)
[2022-11-13] MEDS ORDERED: hydrALAZINE HCL 20 MG/ML VL IV PRN (22:15)
[2022-11-14 05:00] VITALS: BP 126/47
[2022-11-14 08:15] VITALS: BP 126/43
[2022-11-14 08:51] VITALS: BP 126/43
[2022-11-14] MEDS: LISINOPRIL 20 MG TAB PO SCH (10:29)
[2022-11-14] MEDS: ASPirin-EC 81 mg tab PO SCH (10:29)
[2022-11-14] MEDS: ENOXAPARIN SOD 30 MG/0.3 ML SYRINGE SC SCH (10:30)
[2022-11-14] MEDS: MORPHINE SULFATE INJ 2 MG/ml SYRG IV PRN ×2 (10:30→20:24)
[2022-11-14] MEDS: ACCU-CHEK COMFORT CURVE STRIP VI SCH ×6 (11:37→23:03)
[2022-11-14] MEDS ORDERED: DEXTROSE (50%) 50ML SYRG IV PRN (11:45)
[2022-11-14 13:00] VITALS: BP 124/43
[2022-11-14 13:59] LABS: Urine Bacteria NONE SEEN /hpf (None Seen); Urine Blood Negative /uL (Negative); Urine Mucus FEW (None Seen); Urine WBC 4 /hpf (0 - 5)
[2022-11-14 17:18] VITALS: BP 131/50
[2022-11-14] MEDS: InsuLIN REG 1unit/0.01ml Soln (100units/ml) SC SCH ×2 (17:34→22:00)
[2022-11-14 22:00] VITALS: BP 134/56
[2022-11-14] MEDS: ATORVASTATIN 20 MG TAB PO SCH (23:01)
[2022-11-14] MEDS: INSULIN LANTUS (GLARGINE) 1 /0.01ml (100units/ml) SC SCH (23:05)
[2022-11-15] MEDS: MORPHINE SULFATE INJ 2 MG/ml SYRG IV PRN ×3 (02:17→16:42)
[2022-11-15 05:00] VITALS: BP 118/42
[2022-11-15] MEDS: ACCU-CHEK COMFORT CURVE STRIP VI SCH ×6 (06:33→21:22)
[2022-11-15] MEDS: InsuLIN REG 1unit/0.01ml Soln (100units/ml) SC SCH ×4 (06:34→22:00)
[2022-11-15 08:15] VITALS: BP 108/54
[2022-11-15 08:20] VITALS: BP 108/54
[2022-11-15] MEDS: ASPirin-EC 81 mg tab PO SCH (09:56)
[2022-11-15] MEDS: LISINOPRIL 20 MG TAB PO SCH (09:56)
[2022-11-15] MEDS: ENOXAPARIN SOD 30 MG/0.3 ML SYRINGE SC SCH (09:58)
[2022-11-15 12:10] VITALS: BP 135/52
[2022-11-15] MEDS ORDERED: CHOLECALCIFEROL (VITD3) 1,000UNIT=25mCg TAB PO ONE (16:45)
[2022-11-15] MEDS ORDERED: POLYETHYLENE GLYCOL 17 GM PWDR PO PRN (16:45)
[2022-11-15] MEDS ORDERED: SENNA 8.6 MG TAB PO PRN (16:45)
[2022-11-15 17:00] VITALS: BP 132/44
[2022-11-15 22:00] VITALS: BP 157/54
[2022-11-15] MEDS: ACETAMINOPHEN 325 MG TAB PO SCH (22:00)
[2022-11-15] MEDS: SENNA 8.6 MG TAB PO SCH (22:00)
[2022-11-15] MEDS: ATORVASTATIN 20 MG TAB PO SCH (22:00)
[2022-11-16] MEDS: ACETAMINOPHEN 325 MG TAB PO SCH (06:11)
[2022-11-16] MEDS: ACCU-CHEK COMFORT CURVE STRIP VI SCH ×4 (06:12→22:00)
[2022-11-16] MEDS: InsuLIN REG 1unit/0.01ml Soln (100units/ml) SC SCH ×4 (06:27→22:00)
[2022-11-16 08:36] LABS: Calcium 8.5 mg/dL (8.5-10.1); Potassium 3.8 mmol/L (3.5-5.1)
[2022-11-16 08:40] LABS: BUN/Creatinine Ratio 24.5; Bilirubin, Total 0.8 mg/dL (0.2-1.0); Total Protein 6.6 g/dL (6.4-8.2)
[2022-11-16 08:47] LABS: Basophils # (auto) 0.1 10 ^3/uL (0-0.2); Basophils % (auto) 0.6 % (0.0-2.0); Eosinophils # (auto) 0.2 10 ^3/uL (0-0.8); Eosinophils % (auto) 2.4 % (0.0-7.0); Hemoglobin 12.6 g/dL (12.2-16.2); Lymphocytes # (auto) 1.8 10 ^3/uL (0.4-5.4); Lymphocytes % (auto) 18.8 % (10.0-50.0); Mean Corpuscular Hemoglobin 27.4 pg (28.0-32.0); Mean Corpuscular Hgb Conc. 33.2 g/dL (32.0-36.0); Mean Corpuscular Volume 82.7 fL (80.0-100.0); Monocytes # (auto) 0.6 10 ^3/uL (0-1.3); Monocytes % (auto) 6.3 % (0.0-12.0); Neutrophils # (auto) 6.9 10 ^3/uL (1.6-8.6); Neutrophils % (auto) 71.9 % (37.0-80.0); Red Cell Distribution Width 14.6 % (11.8-14.3); White Blood Cell 9.6 10^3/uL (4.4-10.8)
[2022-11-16 09:00] VITALS: BP 135/52
[2022-11-16] MEDS: ASPirin-EC 81 mg tab PO SCH (09:43)
[2022-11-16] MEDS: ENOXAPARIN SOD 30 MG/0.3 ML SYRINGE SC SCH (09:44)
[2022-11-16] MEDS: CHOLECALCIFEROL (VITD3) 1,000UNIT=25mCg TAB PO SCH (09:47)
[2022-11-16] MEDS: LISINOPRIL 20 MG TAB PO SCH (09:47)
[2022-11-16] MEDS: HYDROmorphone HCL 2 MG TAB PO PRN (09:54)
[2022-11-16 13:54] VITALS: BP 132/40
[2022-11-16] MEDS: ACETAMINOPHEN 500 MG TAB PO SCH ×2 (15:40→21:21)
[2022-11-16 16:56] VITALS: BP 137/50
[2022-11-16] MEDS: ATORVASTATIN 20 MG TAB PO SCH (21:20)
[2022-11-16] MEDS: SENNA 8.6 MG TAB PO SCH (21:21)
[2022-11-16 22:00] VITALS: BP 136/46
[2022-11-17 05:00] VITALS: BP 133/52
[2022-11-17] MEDS: ACCU-CHEK COMFORT CURVE STRIP VI SCH ×4 (05:46→21:44)
[2022-11-17] MEDS: ACETAMINOPHEN 500 MG TAB PO SCH ×3 (05:47→21:44)
[2022-11-17] MEDS: InsuLIN REG 1unit/0.01ml Soln (100units/ml) SC SCH ×4 (05:55→21:52)
[2022-11-17 06:14] LABS: Basophils # (auto) 0.1 10 ^3/uL (0-0.2); Basophils % (auto) 0.5 % (0.0-2.0); Eosinophils # (auto) 0.2 10 ^3/uL (0-0.8); Eosinophils % (auto) 1.8 % (0.0-7.0); Hematocrit 36.9 % (36.0-46.0); Hemoglobin 12.4 g/dL (12.2-16.2); Lymphocytes # (auto) 1.9 10 ^3/uL (0.4-5.4); Lymphocytes % (auto) 17.6 % (10.0-50.0); Mean Corpuscular Hemoglobin 27.8 pg (28.0-32.0); Mean Corpuscular Hgb Conc. 33.7 g/dL (32.0-36.0); Mean Corpuscular Volume 82.4 fL (80.0-100.0); Monocytes # (auto) 0.6 10 ^3/uL (0-1.3); Monocytes % (auto) 5.5 % (0.0-12.0); Neutrophils % (auto) 74.6 % (37.0-80.0); Red Blood Cells 4.48 10^6/uL (4.0-5.20); Red Cell Distribution Width 14.6 % (11.8-14.3); White Blood Cell 10.8 10^3/uL (4.4-10.8)
[2022-11-17 06:35] LABS: Potassium 4.9 mmol/L (3.5-5.1)
[2022-11-17 06:40] LABS: Albumin 2.9 g/dL (3.4-5.0); Calcium 8.7 mg/dL (8.5-10.1)
[2022-11-17 06:43] LABS: Bilirubin, Total 0.7 mg/dL (0.2-1.0); Total Protein 6.6 g/dL (6.4-8.2)
[2022-11-17] MEDS: HYDROmorphone HCL 2 MG TAB PO PRN ×2 (07:42→11:59)
[2022-11-17 09:00] VITALS: BP 131/44
[2022-11-17] MEDS: ENOXAPARIN SOD 30 MG/0.3 ML SYRINGE SC SCH (10:33)
[2022-11-17] MEDS: CHOLECALCIFEROL (VITD3) 1,000UNIT=25mCg TAB PO SCH (10:41)
[2022-11-17] MEDS: LISINOPRIL 20 MG TAB PO SCH (10:41)
[2022-11-17] MEDS: ASPirin-EC 81 mg tab PO SCH (10:41)
[2022-11-17 13:00] VITALS: BP 119/44
[2022-11-17 17:00] VITALS: BP 140/42
[2022-11-17 20:00] VITALS: BP 131/59
[2022-11-17] MEDS: SENNA 8.6 MG TAB PO SCH (21:43)
[2022-11-17] MEDS: ONDANSETRON HCL 4 MG/2 ML VIAL IV PRN (21:44)
[2022-11-17] MEDS: ATORVASTATIN 20 MG TAB PO SCH (21:44)
[2022-11-17 22:00] VITALS: BP 131/59
[2022-11-18] VITALS (7 sets, daily range): BP systolic 112–144; BP diastolic 47–75
[2022-11-18] MEDS: ONDANSETRON HCL 4 MG/2 ML VIAL IV PRN (04:06)
[2022-11-18] MEDS: MORPHINE SULFATE INJ 2 MG/ml SYRG IV PRN (04:07)
[2022-11-18 05:40] LABS: Basophils # (auto) 0.1 10 ^3/uL (0-0.2); Basophils % (auto) 0.5 % (0.0-2.0); Eosinophils # (auto) 0.3 10 ^3/uL (0-0.8); Eosinophils % (auto) 2.9 % (0.0-7.0); Hematocrit 37.3 % (36.0-46.0); Hemoglobin 12.5 g/dL (12.2-16.2); Lymphocytes # (auto) 2.9 10 ^3/uL (0.4-5.4); Lymphocytes % (auto) 27.3 % (10.0-50.0); Mean Corpuscular Hemoglobin 27.8 pg (28.0-32.0); Mean Corpuscular Hgb Conc. 33.5 g/dL (32.0-36.0); Monocytes # (auto) 0.8 10 ^3/uL (0-1.3); Neutrophils # (auto) 6.7 10 ^3/uL (1.6-8.6); Neutrophils % (auto) 62.3 % (37.0-80.0); Red Cell Distribution Width 14.5 % (11.8-14.3); White Blood Cell 10.8 10^3/uL (4.4-10.8)
[2022-11-18 06:24] LABS: Albumin 3.1 g/dL (3.4-5.0); BUN/Creatinine Ratio 21.4; Bilirubin, Total 0.7 mg/dL (0.2-1.0); Calcium 8.7 mg/dL (8.5-10.1); Potassium 4.5 mmol/L (3.5-5.1)
[2022-11-18] MEDS: ACCU-CHEK COMFORT CURVE STRIP VI SCH ×4 (06:48→21:50)
[2022-11-18] MEDS: ACETAMINOPHEN 500 MG TAB PO SCH ×3 (06:48→21:50)
[2022-11-18] MEDS: InsuLIN REG 1unit/0.01ml Soln (100units/ml) SC SCH ×4 (06:48→21:59)
[2022-11-18] MEDS: ASPirin-EC 81 mg tab PO SCH (09:40)
[2022-11-18] MEDS: LISINOPRIL 20 MG TAB PO SCH (09:42)
[2022-11-18] MEDS: CHOLECALCIFEROL (VITD3) 1,000UNIT=25mCg TAB PO SCH (09:42)
[2022-11-18] MEDS: ENOXAPARIN SOD 30 MG/0.3 ML SYRINGE SC SCH (09:43)
[2022-11-18] MEDS: SENNA 8.6 MG TAB PO SCH (21:50)
[2022-11-18] MEDS: ATORVASTATIN 20 MG TAB PO SCH (21:50)
[2022-11-18] MEDS ORDERED: INSULIN LANTUS (GLARGINE) 1 /0.01ml (100units/ml) SC SCH (22:00)
[2022-11-19 05:00] VITALS: BP 138/60
[2022-11-19] MEDS: ACETAMINOPHEN 500 MG TAB PO SCH ×2 (05:35→13:23)
[2022-11-19] MEDS: ACCU-CHEK COMFORT CURVE STRIP VI SCH ×3 (05:35→17:00)
[2022-11-19] MEDS: InsuLIN REG 1unit/0.01ml Soln (100units/ml) SC SCH ×3 (05:35→17:00)
[2022-11-19 06:22] LABS: Basophils # (auto) 0.1 10 ^3/uL (0-0.2); Basophils % (auto) 0.6 % (0.0-2.0); Eosinophils # (auto) 0.3 10 ^3/uL (0-0.8); Eosinophils % (auto) 2.3 % (0.0-7.0); Hematocrit 38.9 % (36.0-46.0); Hemoglobin 12.7 g/dL (12.2-16.2); Lymphocytes # (auto) 2.8 10 ^3/uL (0.4-5.4); Lymphocytes % (auto) 21.7 % (10.0-50.0); Mean Corpuscular Hgb Conc. 32.7 g/dL (32.0-36.0); Mean Corpuscular Volume 82.7 fL (80.0-100.0); Monocytes # (auto) 0.7 10 ^3/uL (0-1.3); Monocytes % (auto) 5.5 % (0.0-12.0); Neutrophils # (auto) 8.9 10 ^3/uL (1.6-8.6); Neutrophils % (auto) 69.9 % (37.0-80.0); Nucleated Red Blood Cells % 0.1 %; Red Cell Distribution Width 14.7 % (11.8-14.3); White Blood Cell 12.8 10^3/uL (4.4-10.8)
[2022-11-19 06:44] LABS: Potassium 3.7 mmol/L (3.5-5.1)
[2022-11-19 06:51] LABS: Albumin 2.9 g/dL (3.4-5.0); BUN/Creatinine Ratio 27.5; Bilirubin, Total 0.6 mg/dL (0.2-1.0); Calcium 8.3 mg/dL (8.5-10.1); Total Protein 6.5 g/dL (6.4-8.2)
[2022-11-19 07:54] VITALS: BP 128/62
[2022-11-19] MEDS: ASPirin-EC 81 mg tab PO SCH (09:46)
[2022-11-19] MEDS: CHOLECALCIFEROL (VITD3) 1,000UNIT=25mCg TAB PO SCH (09:48)
[2022-11-19] MEDS: LISINOPRIL 20 MG TAB PO SCH (09:48)
[2022-11-19] MEDS: ENOXAPARIN SOD 30 MG/0.3 ML SYRINGE SC SCH (09:49)
[2022-11-19 13:10] VITALS: BP_SYST 126; BP_SYST 129; BP_DIAS 68; BP_DIAS 76
[2022-11-19] MEDS: MORPHINE SULFATE INJ 2 MG/ml SYRG IV PRN (13:24)
[2022-11-19] MEDS: ONDANSETRON HCL 4 MG/2 ML VIAL IV PRN (13:25)
[2022-11-19] MEDS ORDERED: TRAM50TA2 PO (13:47)
[2022-11-19 16:50] VITALS: BP 128/62
[2022-11-19 16:54] VITALS: BP 128/69
== END 2022-11-19 18:21 | disposition home health service (06) | DRG 536 ==
LOC: ER 13:40 → OVERFLOW 18:30 → WEST WING 11-13 21:58
PROVIDERS: ADMIT Registered Nurse; ATTEND Internal Medicine
DX: S32.511A Fracture of superior rim of right pubis, initial encounter for closed fracture (principal); J98.11 Atelectasis; I10 Essential (primary) hypertension; W10.9XXA Fall (on) (from) unspecified stairs and steps, initial encounter; E11.649 Type 2 diabetes mellitus with hypoglycemia without coma; Z20.822 Contact with and (suspected) exposure to COVID-19; E55.9 Vitamin D deficiency, unspecified; E78.5 Hyperlipidemia, unspecified; M81.0 Age-related osteoporosis without current pathological fracture; Y93.89 Activity, other specified; Y92.89 Other specified places as the place of occurrence of the external cause; Y99.8 Other external cause status
CPT/HCPCS: 36415; 71045; 71250; 73502; 73700; 80053; 80061; 81001; 82306; 82962; 83036; 83735; 84484; 85025; 85610; 85730; 87426; 93005; 96372; 97110; 97116; 97163; 97530; G0378; J1815; J2405

== ENCOUNTER → 2023-11-25 | Outpatient (CLI) | payer MEDICARE, OTHER ==
[~2023-11-25] MED LIST changes: -LISI20TA28 PO; +LISI20TA56 PO; +TRAM50TA2 PO
[2023-11-25 08:54] LABS: Urine Bacteria FEW /hpf (None Seen); Urine Blood Negative /uL (Negative); Urine Clarity HAZY (Clear); Urine Color Colorless (Yellow); Urine Mucus FEW (None Seen); Urine Protein, UAD Negative (Negative); Urine Specific Gravity 1.013 (1.001-1.035); Urine Urobilinogen Normal (Negative); Urine WBC 15 /hpf (0 - 5)
[2023-11-25 09:00] LABS: Alanine Aminotransferase 10 U/L (7-40); Alkaline Phosphatase 117 U/L (46-116); Anion Gap 3 (5-15); Aspartate Aminotransferase 19 U/L (13-40); BUN/Creatinine Ratio 14.3 (10.0-20.0); Blood Urea Nitrogen 9 mg/dL (9-23); Calcium 9.3 mg/dL (8.5-10.1); Carbon Dioxide 32 mmol/L (20-30); Chloride 105 mmol/L (98-107); Glucose 98 mg/dL (74-106); Sodium 140 mmol/L (136-145); Total Protein 6.5 g/dL (5.7-8.2)
[2023-11-25 09:01] LABS: Bilirubin, Total 0.5 mg/dL (0.2-1.0)
[2023-11-25 09:13] LABS: Basophils # (auto) 0.1 10 ^3/uL (0-0.2); Basophils % (auto) 0.8 % (0.0-2.0); Eosinophils # (auto) 0.2 10 ^3/uL (0-0.8); Eosinophils % (auto) 1.8 % (0.0-7.0); Hematocrit 42.9 % (36.0-46.0); Hemoglobin 13.8 g/dL (12.2-16.2); Lymphocytes # (auto) 3.2 10 ^3/uL (0.4-5.4); Lymphocytes % (auto) 34.7 % (10.0-50.0); Mean Corpuscular Hemoglobin 26.8 pg (28.0-32.0); Mean Corpuscular Hgb Conc. 32.2 g/dL (32.0-36.0); Mean Corpuscular Volume 83.3 fL (80.0-100.0); Monocytes # (auto) 0.7 10 ^3/uL (0-1.3); Monocytes % (auto) 7.4 % (0.0-12.0); Neutrophils % (auto) 55.3 % (37.0-80.0); Nucleated Red Blood Cells % 0.1 %; Red Blood Cells 5.15 10^6/uL (4.0-5.20); Red Cell Distribution Width 14.2 % (11.8-14.3); White Blood Cell 9.1 10^3/uL (4.4-10.8)
== END | disposition home or self-care (01) ==
LOC: LAB 08:24
PROVIDERS: ATTEND Student in an Organized Health Care Education/Training Program
DX: I10 Essential (primary) hypertension (principal); E11.9 Type 2 diabetes mellitus without complications
CPT/HCPCS: 36415; 80053; 81001; 83036; 85025

== ENCOUNTER → 2024-03-23 | Outpatient (CLI) | payer MEDICARE, OTHER ==
[2024-03-23 10:57] LABS: Basophils # (auto) 0 10 ^3/uL (0-0.2); Basophils % (auto) 0.5 % (0.0-2.0); Eosinophils # (auto) 0.2 10 ^3/uL (0-0.8); Hematocrit 41.7 % (36.0-46.0); Hemoglobin 13.9 g/dL (12.2-16.2); Lymphocytes # (auto) 2.6 10 ^3/uL (0.4-5.4); Lymphocytes % (auto) 29.1 % (10.0-50.0); Mean Corpuscular Hemoglobin 27.6 pg (28.0-32.0); Mean Corpuscular Hgb Conc. 33.3 g/dL (32.0-36.0); Mean Corpuscular Volume 82.8 fL (80.0-100.0); Monocytes # (auto) 0.6 10 ^3/uL (0-1.3); Monocytes % (auto) 6.9 % (0.0-12.0); Neutrophils # (auto) 5.4 10 ^3/uL (1.6-8.6); Neutrophils % (auto) 61.5 % (37.0-80.0); Red Blood Cells 5.04 10^6/uL (4.0-5.20); Red Cell Distribution Width 14.5 % (11.8-14.3); White Blood Cell 8.9 10^3/uL (4.4-10.8)
[2024-03-23 11:50] LABS: Creatinine, Urine 64.46 mg/dL (30.0-125.0)
[2024-03-23 11:56] LABS: Alanine Aminotransferase 22 U/L (7-40); Albumin 4.1 g/dL (3.2-4.8); Alkaline Phosphatase 129 U/L (46-116); Anion Gap 6 (5-15); Aspartate Aminotransferase 16 U/L (13-40); BUN/Creatinine Ratio 18.3 (10.0-20.0); Blood Urea Nitrogen 11 mg/dL (9-23); Calcium 9.5 mg/dL (8.5-10.1); Carbon Dioxide 28 mmol/L (20-30); Chloride 108 mmol/L (98-107); Cholesterol 187 mg/dL (< 200); Glucose 64 mg/dL (74-106); HDL Cholesterol 58 mg/dL (40-59); LDL Cholesterol 112 mg/dL (< 100); Potassium 4.3 mmol/L (3.5-5.1); Sodium 142 mmol/L (136-145); Triglycerides 64 mg/dL (< 150)
[2024-03-23 11:57] LABS: Bilirubin, Total 0.7 mg/dL (0.2-1.0); Total Protein 6.5 g/dL (5.7-8.2)
== END | disposition home or self-care (01) ==
LOC: LAB 10:32
PROVIDERS: ATTEND Student in an Organized Health Care Education/Training Program
DX: I10 Essential (primary) hypertension (principal); E11.9 Type 2 diabetes mellitus without complications; N39.0 Urinary tract infection, site not specified
CPT/HCPCS: 36415; 80053; 80061; 82043; 82570; 83036; 85025; 87086

== ENCOUNTER 2024-08-01 22:05 | Inpatient (IN) | payer MEDICARE, OTHER ==
[~2024-08-01] VITALS: Ht 142.2 cm; Wt 48.5 kg
[2024-08-01 22:31] LABS: Basophils # (auto) 0.1 10 ^3/uL (0-0.2); Basophils % (auto) 0.6 % (0.0-2.0); Eosinophils # (auto) 0.1 10 ^3/uL (0-0.8); Eosinophils % (auto) 1.4 % (0.0-7.0); Hematocrit 43.4 % (36.0-46.0); Hemoglobin 14.6 g/dL (12.2-16.2); Lymphocytes % (auto) 28.2 % (10.0-50.0); Mean Corpuscular Hemoglobin 27.9 pg (28.0-32.0); Mean Corpuscular Hgb Conc. 33.7 g/dL (32.0-36.0); Monocytes # (auto) 0.8 10 ^3/uL (0-1.3); Monocytes % (auto) 7.3 % (0.0-12.0); Neutrophils # (auto) 6.6 10 ^3/uL (1.6-8.6); Neutrophils % (auto) 62.5 % (37.0-80.0); Nucleated Red Blood Cells % 0.1 %; Platelet Count (auto) 241 10^3/uL (140-450); Red Blood Cells 5.23 10^6/uL (4.0-5.20); Red Cell Distribution Width 13.9 % (11.8-14.3); White Blood Cell 10.6 10^3/uL (4.4-10.8)
[2024-08-01 22:50] LABS: Chloride 102 mmol/L (98-107); Sodium 135 mmol/L (136-145)
[2024-08-01 22:51] LABS: Anion Gap 8 (5-15); Calcium 9.5 mg/dL (8.7-10.4); Carbon Dioxide 25 mmol/L (20-31)
[2024-08-01 22:56] LABS: Blood Urea Nitrogen 12 mg/dL (9-23)
[2024-08-01 23:06] LABS: INR 1.05 (0.9-1.15); Partial Thromboplastin Time 24.8 SEC (24.5-34.5); Prothrombin Time 11.1 sec (9.3-11.8)
[2024-08-01 23:11] LABS: Glucose 427 mg/dL (74-106)
[2024-08-01] MEDS: ASPirin 325 MG TAB PO ONE (23:14)
[2024-08-01] MEDS: NITROGLYCERIN 2% OINT 1GM PKG TD ONE (23:15)
--- NOTE | 2024-08-01 23:15 | ED.PDOC ---
History of Present Illness HPI Comments 88 y/o F with history of hypertension and diabetes, brought in by daughter complaining of retrosternal/left-sided, left-sided chest pain, onset around 2149 today. Pain described as severe, pressure-like, constant, no particular exacerbating or alleviating factors. Patient denies fever, cough, shortness of breath, nausea, vomiting, diaphoresis or edema. Chief Complaint: Chest Pain Time Seen by MD: 23:05 Primary Care Provider: S[facility]A Reviewed Notes: Nurses Notes, Medications, Allergies Allergies: Coded Allergies: NO KNOWN ALLERGIES (Unverified , 04/10/21) Home Meds Active Scripts Tramadol Hcl (Tramadol Hcl) 50 Mg Tab, 50 MG PO TIDP PRN for 7 Days, #21 TAB Prov:NANO PAULINO MD 11/19/22 Reported Medications Aspirin (Aspir-Low) 81 Mg Tab, 81 MG PO DAILY for 30 Days, MG 05/16/20 Atorvastatin Calcium (Lipitor) 10 Mg Tab, 1 TAB PO DAILY, #30 TAB 5 Refills 05/16/20 Lisinopril (Lisinopril) 20 Mg Tab, 10 MG PO DAILY, TAB 03/29/20 Insulin Glargine (Lantus) 100 Unit/Ml Inj, 20 UNIT SC HS, INJ 03/29/20 Insulin Glargine (Lantus) 100 Unit/Ml Inj, 20 UNIT SC DAILY@BREAKFAST, INJ 03/29/20 Information Source: Patient, Relative (Child) Mode of Arrival: Wheelchair Severity: Moderate Timing: Hours Duration: Since onset Prehospital treatment: None Past Medical History PAST MEDICAL HISTORY: DM, HTN Surgical History (Other): bilateral hip Sx RESEARCH AND DEVELOPMENT CHEMIST History: Denies all RESEARCH AND DEVELOPMENT CHEMIST Hx Family History Family History: Reviewed,noncontributory to illness Social History Smoker: Non-Smoker Alcohol: Denies ETOH Use Drugs: Denies Drug Use Lives In: Home Constitutional: denies: chills, diaphoresis, fatigue, fever, malaise, sweats, weakness, others EENTM: denies: blurred vision, double vision, ear bleeding, ear discharge, ear drainage, ear pain, ear ringing, eye pain, eye redness, hearing loss, mouth pain, mouth swelling, nasal discharge, nose bleeding, nose congestion, nose pain, photophobia, tearing, throat pain, throat swelling, voice changes, others Respiratory: denies: cough, hemoptysis, orthopnea, SOB at rest, shortness of breath, SOB with excertion, stridor, wheezing, others Cardiovascular: reports: chest pain; denies: dizzy spells, diaphoresis, Dyspnea on exertion, edema, irregular heart beat, left arm pain, lightheadedness, palpitations, PND, syncope, others Gastrointestinal: denies: abdomen distended, abdominal pain, blood streaked bowels, constipated, diarrhea, dysphagia, difficulty swallowing, hematemesis, melena, nausea, poor appetite, poor fluid intake, rectal bleeding, rectal pain, vomiting, others Genitourinary: denies: abnormal vagina bleeding, burning, dyspareunia, dysuria, flank pain, frequency, hematuria, incontinence, pain, , vagina discharge, urgency, others Neurological: denies: dizziness, fainting, headache, left sided numbness, left sided weakness, numbness, paresthesia, pre-existing deficit, right sided numbness, right sided weakness, seizure, speech problems, tingling, tremors, weakness, others Musculoskeletal: denies: back pain, gout, joint pain, joint swelling, muscle pain, muscle stiffness, neck pain, others Integumetry: denies: bruises, change in color, change in hair/nails, dryness, laceration, lesions, lumps, rash, wounds, others Allergic/Immunocompromised: denies: Difficulty Healing, Frequent Infections, Hives, Itching, others Hematologic/Lymphatic: denies: anemia, blood clots, easy bleeding, easy bruising, swollen glands, others Endocrine: denies: excessive hunger, excessive sweating, excessive thirst, excessive urination, flushing, intolerance to cold, intolerance to heat, unexplained weight gain, unexplained weight loss, others Psychiatric: denies: anxiety, bipolar disorder, depression, hopeless, panic disorder, schizophrenia, sleepless, suicidal, others All Other Systems: Reviewed and Negative Physical Exam General Appearance: No Apparent Distress, Normal HEENT: Normal ENT Inspection Neck: Full Range of Motion, Normal Inspection Respiratory: Lungs Clear, No Accessory Muscle Use, No Respiratory Distress, Normal Breath Sounds Cardiovascular: No Edema, No JVD, Regular Rate/Rhythm Breast Exam: Deferred Gastrointestinal: Non Tender, Soft Genitalia: Deferred Pelvic: Deferred Rectal: Deferred Extremities: Normal inspection, Normal range of motion, Non-tender, No pedal edema Neurologic: Alert, No Motor Deficits, Normal Affect, Normal Mood, No Sensory Deficits Cerebellar Function: NOT DONE Reflexes: NOT DONE Skin: Dry, Normal Color, Warm Lymphatic: NOT DONE Was a procedure done? Was a procedure done?: No EKG EKG : Comments Sinus rhythm, rate 94, normal MD interval, QRS prolonged at 146, QTC prolonged at 493, normal axis, left bundle-branch block, inferior and lateral T-wave inversion with minimal ST depression Comparison was made to old EKG dated 11/12/2022 which showed sinus rhythm, rate 92, prolonged intervals, normal axis, T-wave inversion in leads 1 and aVL, ST depression in leads 2, 3, AVF, V5 and V6 Differential Dx Considerations may include: ACS, NV, PE, chest wall pain, pneumonia, gastritis, GERD, PUD, among others X-Ray, Labs, Meds, VS Vital Signs Date Time Temp Pulse Resp B/P (MAP) Pulse Ox O2 Delivery O2 Flow Rate FiO2 08/02/24 00:59 73 16 122/52 (75) 94 08/02/24 00:13 126/60 08/02/24 00:00 78 08/01/24 23:37 68 16 96 Room Air* 0 21 21 08/01/24 23:15 134/71 08/01/24 23:05 94 08/01/24 23:00 99.0 88 18 134/71 (92) 96 99.0 08/01/24 22:11 103 08/01/24 22:09 99.1 102 18 138/76 (96) 94 Lab Test 08/02/24 01:19 08/01/24 23:30 08/01/24 22:21 Range/Units Troponin I High Sensitivity 7892 *H 5027 *H 5268 *H </=34 ng/L White Blood Count 10.6 4.4-10.8 10^3/uL Red Blood Count 5.23 H 4.0-5.20 10^6/uL Hemoglobin 14.6 12.2-16.2 g/dL Hematocrit 43.4 36.0-46.0 % Mean Corpuscular Volume 83.0 80.0-100.0 fL Mean Corpuscular Hemoglobin 27.9 L 28.0-32.0 pg Mean Corpuscular Hemoglobin Concent 33.7 32.0-36.0 g/dL Red Cell Distribution Width 13.9 11.8-14.3 % Platelet Count 241 140-450 10^3/uL Mean Platelet Volume 9.2 6.9-10.8 fL Neutrophils (%) (Auto) 62.5 37.0-80.0 % Lymphocytes (%) (Auto) 28.2 10.0-50.0 % Monocytes (%) (Auto) 7.3 0.0-12.0 % Eosinophils (%) (Auto) 1.4 0.0-7.0 % Basophils (%) (Auto) 0.6 0.0-2.0 % Neutrophils # (Auto) 6.6 1.6-8.6 10 ^3/uL Lymphocytes # (Auto) 3.0 0.4-5.4 10 ^3/uL Monocytes # (Auto) 0.8 0-1.3 10 ^3/uL Eosinophils # (Auto) 0.1 0-0.8 10 ^3/uL Basophils # (Auto) 0.1 0-0.2 10 ^3/uL Nucleated Red Blood Cells 0.1 % Prothrombin Time 11.1 9.3-11.8 sec Prothrombin Time INR 1.05 0.9-1.15 Activated Partial Thromboplast Time 24.8 24.5-34.5 SEC Sodium Level 135 L 136-145 mmol/L Potassium Level 4.0 3.5-5.1 mmol/L Chloride Level 102 98-107 mmol/L Carbon Dioxide Level 25 20-31 mmol/L Anion Gap 8 5-15 Blood Urea Nitrogen 12 9-23 mg/dL Creatinine 0.86 0.550-1.02 mg/dL Glomerular Filtration Rate Calc 65 >90 mL/min BUN/Creatinine Ratio 14.0 10.0-20.0 Serum Glucose 427 *H 74-106 mg/dL Calcium Level 9.5 8.7-10.4 mg/dL Magnesium Level 2.0 1.6-2.6 mg/dL B-Type Natriuretic Peptide 632.47 0-100 pg/mL Current Medications Medications (Trade) Dose Ordered Sig/Amelia Route Start Time Stop Time Status Last Admin Aspirin 325 mg ONCE ONCE PO 08/01/24 23:15 08/01/24 23:16 DC 08/01/24 23:14 Nitroglycerin (Nitro-Bid) 1 pkg ONCE ONCE TD 08/01/24 23:15 08/01/24 23:16 DC 08/01/24 23:15 PROCEDURE(s): CXRP - CHEST PORTABLE REASON: CP ORDER NUMBER(s): [id number], ACCESSION NUMBER(s): [id number] CHEST RADIOGRAPH Indication: CP Technique: Single frontal view of the chest was obtained Comparison: XY CHEST PORTABLE on DOS: 11/12/22 FINDINGS: Lines and Tubes: None Lungs: No focal consolidation. Pleura: No effusion. No pneumothorax. Cardiomediastinal contours: Unremarkable Bones: No acute osseous abnormality. IMPRESSION: No acute cardiopulmonary disease. Bibasilar atelectasis/ scarring. X-Ray, Labs, Meds, VS Comment 88-year-old female with a history of hypertension and diabetes presenting with chest pain Vitals unremarkable Exam unremarkable EKG sinus rhythm, left bundle-branch block, inferior and lateral T-wave inversion with ST depression Chest x-ray unremarkable CBC unremarkable, BMP remarkable for sodium 135, glucose 427 Serial troponins: 5268, 5027, 7892 BNP 632.47 Patient treated with the following in the ED: Aspirin 325 mg p.o., nitro bid 1 in to chest wall, heparin bolus followed by infusion On re-evaluation after nitro bid, patient stated chest pain had resolved. Vitals were stable. Plan is to admit the patient for Cardiology evaluation. Time of 1ST Reevaluation: 23:35 Reevaluation 1ST: Unchanged Time of 2ND Reevaluation: 02:22 Reevaluation 2ND: Improved Patient Education/Counseling: Diagnosis, Treatment Family Education/Counseling: Diagnosis, Treatment Departure 1 Departure Time of Disposition: 02:22 Impression: Primary Impression: Non-STEMI (non-ST elevated myocardial infarction) Disposition: 09 ADMITTED INPATIENT Admit to: [facility] Condition: Guarded Critical Care Note Critical Care Time?: Yes (45 min-critical care time only) Critical care comment: Critical care time including multiple bedside re-evaluations, review of lab and imaging studies, and discussion of the case with the admitting provider. Patient is high risk for hemodynamic decompensation. Stability Stability form required: No Heart Score Heart Score: Heart Score Response (Comments) Value History Moderate Suspicious [address]-Deviation 2 Age >65 2 Risk Factors >3 or Hx ASHD 2 Troponin >3 x's Normal limit 2 Total 9 I personally scribed for NALLELY CANNON MD ([email or web address]) on 08/01/24 at 23:15. Electronically submitted by Chris Estes [email or web address]). NALLELY CANNON MD Aug 01, 2024 23:15
[2024-08-01 23:37] VITALS: PULSE 68; RESP 16; O2SAT 96
--- NOTE | 2024-08-01 23:40 | DVH ---
CHEST RADIOGRAPH Indication: CP Technique: Single frontal view of the chest was obtained Comparison: XY CHEST PORTABLE on DOS: 11/12/22 FINDINGS: Lines and Tubes: None Lungs: No focal consolidation. Pleura: No effusion. No pneumothorax. Cardiomediastinal contours: Unremarkable Bones: No acute osseous abnormality. IMPRESSION: No acute cardiopulmonary disease. Bibasilar atelectasis/ scarring.
[2024-08-02] VITALS (10 sets, daily range): BP systolic 104–115; BP diastolic 47–59; PULSE 69–90; RESP 15–21; TEMP 97.4–99; O2SAT 94–99
[2024-08-02] MEDS ORDERED: HEPARIN DRIP/D5W 100UNITS/ML 250 ML IV SCH (02:30)
[2024-08-02] MEDS: HEPARIN SODIUM (PORCINE) 5000 UNITS/ML 1ML VIAL IV ONE (02:41)
[2024-08-02] MEDS: HEPARIN DRIP/D5W 100UNITS/ML 250 ML IV SCH (03:03)
[2024-08-02] MEDS ORDERED: ONDANSETRON HCL 4 MG/2 ML VIAL IV PRN (04:30)
[2024-08-02] MEDS ORDERED: DEXTROSE (50%) 50ML SYRG IV PRN (04:30)
[2024-08-02] MEDS ORDERED: MORPHINE SULFATE INJ 2 MG/ml SYRG IV PRN (04:30)
[2024-08-02] MEDS ORDERED: NITROGLYCERIN 0.4 MG SL TAB SL PRN (04:30)
[2024-08-02] MEDS: SODIUM CHLORIDE 0.9% 1,000 ML IV ONE (05:00)
[2024-08-02] MEDS: ACCU-CHEK COMFORT CURVE STRIP VI SCH (06:23)
[2024-08-02] MEDS: InsuLIN REG 1unit/0.01ml Soln (100units/ml) SC SCH (06:26)
--- NOTE | 2024-08-02 06:34 | ECG ---
[facility] Test Date: 2024-08-01 Test Time: 23:05:30 Pat Name: JOELLE CHAPMAN Department: ED Room: 0245T Gender: F Structural Steel Engineer: GALILEO : 1935 Requested By: NALLELY FRIAS Order Number: [id number] Reading MD: Quinn Rios Measurements Intervals [place] Rate: 94 P: 72 AL: 141 QRS: 32 QRSD: 146 T: 205 QT: 394 QTc: 493 Interpretive Statements Sinus rhythm Left bundle branch block Electronically Signed On 08-05-2024 17:17:56 PST by Quinn Rios Please click the below link to view image of tracing.
--- NOTE | 2024-08-02 07:19 | DVHHP2 ---
History of Present Illness Reason for Visit: Chest pain History of Present Illness 88-year-old female presents for evaluation of chest pain. Patient presents with a one day history of left-sided pressure-like chest pain that is nonradiating. Denies shortness or breath, nausea or vomiting. No other acute complaints reported. Past Medical History Diabetes mellitus and hypertension Past Surgical History Hip surgery Family History Noncontributory Smoke: No ALCOHOL: none Drugs: None Lives: with Family Review of Systems Review of Systems Review of systems are currently negative otherwise addressed in HPI. Allergies: Coded Allergies: NO KNOWN ALLERGIES (Unverified , 04/10/21) Medications Current Medications Medications Dose Ordered Sig/Amelia Route Start Time Stop Time Status Last Admin Dose Admin Heparin Sodium/ Dextrose 250 ml @ 5.832 mls/ hr Q24H IV 08/02/24 02:30 UNV Heparin Sodium/ Dextrose 250 ml @ 6 mls/hr Q24H IV 08/02/24 03:00 08/02/24 03:03 6 MLS/HR Diagnostic Test (Pha) 1 strip Q6HR 08/02/24 06:00 08/02/24 06:23 1 STRIP Insulin Human Regular Q6HR SC 08/02/24 06:00 08/02/24 06:26 4 UNITS Dextrose 50 ml UD PRN IV 08/02/24 04:30 Ondansetron HCl 4 mg Q4HP PRN IV 08/02/24 04:30 Nitroglycerin 0.4 mg Q5MINP PRN SL 08/02/24 04:30 Morphine Sulfate 2 mg Q30M PRN IV 08/02/24 04:30 Exam Vital Signs Vital Signs Date Time Temp Pulse Resp B/P (MAP) Pulse Ox O2 Delivery O2 Flow Rate FiO2 08/02/24 05:03 73 17 105/58 (74) 97 08/01/24 23:37 Room Air* 0 21 21 08/01/24 23:00 99.0 99.0 Exam Gen: 88-year-old female in mild distress Skin: Warm, dry, normal color and texture, no rash. HEENT: Normocephalic atraumatic, mucous membranes moist and pink. Neck: Cervical and supraclavicular nodes normal without enlargement, trachea is midline, thyroid gland is normal without masses. Pulmonary: Clear to auscultation and percussion bilaterally. Cardiac: Regular rate and rhythm. No murmur Abdomen: Soft, nontender, nondistended, bowel sounds present all 4 quadrants, no guarding, no rigidity, no organomegaly. Extremities: No cyanosis, clubbing, no edema Neuro: Cranial nerves II through XII grossly intact, normal affect and speech, no focal motor deficits. Labs/Xrays ORDERING PHYSICIAN: NALLELY CANNON MD PROCEDURE(s): CXRP - CHEST PORTABLE REASON: CP ORDER NUMBER(s): [id number], ACCESSION NUMBER(s): [id number] CHEST RADIOGRAPH Indication: CP Technique: Single frontal view of the chest was obtained Comparison: XY CHEST PORTABLE on DOS: 11/12/22 FINDINGS: Lines and Tubes: None Lungs: No focal consolidation. Pleura: No effusion. No pneumothorax. Cardiomediastinal contours: Unremarkable Bones: No acute osseous abnormality. IMPRESSION: No acute cardiopulmonary disease. Bibasilar atelectasis/ scarring. Labs Test 08/02/24 06:22 08/02/24 01:19 08/01/24 22:21 Range/Units POC Glucose 214 H 70-106 mg/dl Troponin I High Sensitivity 7892 *H </=34 ng/L White Blood Count 10.6 4.4-10.8 10^3/uL Red Blood Count 5.23 H 4.0-5.20 10^6/uL Hemoglobin 14.6 12.2-16.2 g/dL Hematocrit 43.4 36.0-46.0 % Mean Corpuscular Volume 83.0 80.0-100.0 fL Mean Corpuscular Hemoglobin 27.9 L 28.0-32.0 pg Mean Corpuscular Hemoglobin Concent 33.7 32.0-36.0 g/dL Red Cell Distribution Width 13.9 11.8-14.3 % Platelet Count 241 140-450 10^3/uL Mean Platelet Volume 9.2 6.9-10.8 fL Neutrophils (%) (Auto) 62.5 37.0-80.0 % Lymphocytes (%) (Auto) 28.2 10.0-50.0 % Monocytes (%) (Auto) 7.3 0.0-12.0 % Eosinophils (%) (Auto) 1.4 0.0-7.0 % Basophils (%) (Auto) 0.6 0.0-2.0 % Neutrophils # (Auto) 6.6 1.6-8.6 10 ^3/uL Lymphocytes # (Auto) 3.0 0.4-5.4 10 ^3/uL Monocytes # (Auto) 0.8 0-1.3 10 ^3/uL Eosinophils # (Auto) 0.1 0-0.8 10 ^3/uL Basophils # (Auto) 0.1 0-0.2 10 ^3/uL Nucleated Red Blood Cells 0.1 % Prothrombin Time 11.1 9.3-11.8 sec Prothrombin Time INR 1.05 0.9-1.15 Activated Partial Thromboplast Time 24.8 24.5-34.5 SEC Sodium Level 135 L 136-145 mmol/L Potassium Level 4.0 3.5-5.1 mmol/L Chloride Level 102 98-107 mmol/L Carbon Dioxide Level 25 20-31 mmol/L Anion Gap 8 5-15 Blood Urea Nitrogen 12 9-23 mg/dL Creatinine 0.86 0.550-1.02 mg/dL Glomerular Filtration Rate Calc 65 >90 mL/min BUN/Creatinine Ratio 14.0 10.0-20.0 Serum Glucose 427 *H 74-106 mg/dL Calcium Level 9.5 8.7-10.4 mg/dL Magnesium Level 2.0 1.6-2.6 mg/dL B-Type Natriuretic Peptide 632.47 0-100 pg/mL Assessment/Plan Assessment/Plan Assessment NSTEMI Diabetes mellitus Hypertension Plan Admit the patient to [facility] to the hospitalist ACS protocol NPO Continue treatment per orders Total critical care time excluding procedures performed this 45 minutes. Plan discussed with: Patient My Orders Orders - NANO HAYS AGACNP Procedure Category Date Status Time * Cardiology Consult CONS 08/02/24 Transmitted 04:22 Sodium Chloride 0.9% PHA 08/02/24 In Process 04:30 Glucose Blood PHA 08/02/24 In Process (Accu-Chek Comfort 06:00 Insulin R (Human) PHA 08/02/24 In Process (Insulin R) 06:00 Dextrose 50% Syringe PHA 08/02/24 In Process 04:30 Admit ADMIT 08/02/24 Transmitted 04:22 Ondansetron Hcl PHA 08/02/24 In Process (Zofran) 04:30 Complete Blood Count LAB 08/03/24 Verified 04:00 Comprehensive LAB 08/03/24 Verified Metabolic Panel 04:00 Npo (Nothing By DIET 08/02/24 Transmitted Mouth) Diet Breakfast Echo 2d Mode Cardiac US 08/02/24 Logged DOP 04:22 Condition: Critical [facility] 08/02/24 In Process 04:22 Bedrest With Bathroom [facility] 08/02/24 In Process Privileg 04:22 Nitroglycerin [facility] 08/02/24 In Process Sublingual (Ntrostat 04:30 Morphine Sulfate [facility] 08/02/24 In Process Injection 04:30 Notify Of Changes [facility] 08/02/24 In Process From Base 04:22 Paint Crew Supervisor For [facility] 08/02/24 In Process 24 Hours 04:22 Emergency Dysrhythmia [facility] 08/02/24 In Process Protocol 04:22 Rhythm Strips Once [facility] 08/02/24 In Process Every Shift 04:22 Oxygen By Nasal RT 08/02/24 Transmitted Cannula 04:22 Date of Service: Aug 02, 2024 Billing Provider: NANO HAYS Common Visit Codes: [id number] CARE 30-74 MIN NANO HAYS Aug 02, 2024 07:19
--- NOTE | 2024-08-02 07:58 | DVHINCON2 ---
Date Seen: Aug 02, 2024 Referring Physician MARIFER Oliveira Reason for Consultation NSTEMI History of Present Illness This is a Cook Islander-speaking mostly 88-year-old female who presented to the emergency room with a chief complaint of chest pain for two days. Describes her chest pain as retrosternal, radiating to the left inframammary area, non provoked, pressure-like, intermittent, and associated with generalized weakness. She underwent multiple 12 lead electrocardiogram revealing a sinus rhythm with an associated left bundle branch block. Troponin levels are trending up with latest >7800 ng/L. Significant medical history includes hypertension, dyslipidemia, insulin-dependent diabetes mellitus, and tobacco use since 20 y.o. including exposure x 17 pack-years. Past Medical History Past medical history reviewed. No other significant than mentioned above. Past Surgical History Left hip replacement Family History: Patient reports no known family medical history. Family History Family history reviewed. Social History Denies the use of illicit drugs and alcohol. Admits to tobacco use. Allergies: Coded Allergies: NO KNOWN ALLERGIES (Unverified , 04/10/21) Home Meds Active Scripts Tramadol Hcl (Tramadol Hcl) 50 Mg Tab, 50 MG PO TIDP PRN for 7 Days, #21 TAB Prov:NANO PAULINO MD 11/19/22 Reported Medications Aspirin (Aspir-Low) 81 Mg Tab, 81 MG PO DAILY for 30 Days, MG 05/16/20 Atorvastatin Calcium (Lipitor) 10 Mg Tab, 1 TAB PO DAILY, #30 TAB 5 Refills 05/16/20 Lisinopril (Lisinopril) 20 Mg Tab, 10 MG PO DAILY, TAB 03/29/20 Insulin Glargine (Lantus) 100 Unit/Ml Inj, 20 UNIT SC HS, INJ 03/29/20 Insulin Glargine (Lantus) 100 Unit/Ml Inj, 20 UNIT SC DAILY@BREAKFAST, INJ 03/29/20 Home Meds Home medications reviewed. Current Medications Current Medications Medications (Trade) Dose Ordered Sig/Amelia Route PRN Reason Start Time Stop Time Status Last Admin Heparin Sodium/ Dextrose 250 ml @ 5.832 mls/ hr Q24H IV 08/02/24 02:30 UNV Heparin Sodium/ Dextrose 250 ml @ 6 mls/hr Q24H IV 08/02/24 03:00 08/02/24 03:03 Diagnostic Test (Pha) (Accu-Chek Comfort Curve T) 1 strip Q6HR 08/02/24 06:00 08/02/24 06:23 Insulin Human Regular (InsuLIN R) Q6HR SC 08/02/24 06:00 08/02/24 06:26 Dextrose 50 ml UD PRN IV Blood Sugar LESS THAN 60 08/02/24 04:30 Ondansetron HCl (Zofran) 4 mg Q4HP PRN IV NAUSEA / VOMITING 08/02/24 04:30 Nitroglycerin (Ntrostat Sublingual) 0.4 mg Q5MINP PRN SL FOR CHEST PAIN 08/02/24 04:30 Morphine Sulfate 2 mg Q30M PRN IV FOR CHEST PAIN 08/02/24 04:30 Review of Systems Constitutional: Generalized weakness Ears, Nose, & Throat: No symptom reported Eyes: No symptom reported Neurological: No symptoms reported Pulmonary/Respiratory: No symptom reported Cardiovascular: Chest pain Gastrointestinal: No symptom reported Genitourinary: No symptom reported Musculoskeletal: No symptom reported Skin: No symptom reported Psychiatric: No symptom reported Endocrine: No symptom reported Hemotologic/Lymphatic: No symptom reported Vital Signs Vital Signs Date Time Temp Pulse Resp B/P (MAP) Pulse Ox O2 Delivery O2 Flow Rate FiO2 08/02/24 07:30 98.3 77 21 121/43 (69) 97 98.3 08/01/24 23:37 Room Air* 0 21 21 Physical Exam General Appearance: Cooperative. Well developed. Well nourished. In no acute distress Head Exam: Normal inspection Neck Exam: Normal inspection. Non-tender. Normal alignment Pulmonary/Respiratory: Chest non-tender. Clear bilateral breath sounds Cardiovascular/Chest: Regular rate and rhythm. S1, S2. Sinus rhythm with LBBB. No murmurs. No JVD. Peripheral Pulses: 2+ Radial (R). 2+ Radial (L). 2+ Pedal (R). 2+ Pedal (L) Abdominal Exam: Normal bowel sounds. Soft. Nontender. No hepatospenomegaly. No masses Ankle Exam: Negative ankle edema Lower extremities: Negative lower extremity edema Neuro/Mental Status: A&O x3. Coherent Thoughts/Psych: Normal thought pattern. Appropriate mood and affect. Good judgement and insight Appearance: In no acute distress Skin Exam: Normal inspection. Normal color. Warm. Dry Labs/Diagnostic Data Labs Test 08/02/24 06:22 08/02/24 01:19 08/01/24 22:21 Range/Units POC Glucose 214 H 70-106 mg/dl Troponin I High Sensitivity 7892 *H </=34 ng/L White Blood Count 10.6 4.4-10.8 10^3/uL Red Blood Count 5.23 H 4.0-5.20 10^6/uL Hemoglobin 14.6 12.2-16.2 g/dL Hematocrit 43.4 36.0-46.0 % Mean Corpuscular Volume 83.0 80.0-100.0 fL Mean Corpuscular Hemoglobin 27.9 L 28.0-32.0 pg Mean Corpuscular Hemoglobin Concent 33.7 32.0-36.0 g/dL Red Cell Distribution Width 13.9 11.8-14.3 % Platelet Count 241 140-450 10^3/uL Mean Platelet Volume 9.2 6.9-10.8 fL Neutrophils (%) (Auto) 62.5 37.0-80.0 % Lymphocytes (%) (Auto) 28.2 10.0-50.0 % Monocytes (%) (Auto) 7.3 0.0-12.0 % Eosinophils (%) (Auto) 1.4 0.0-7.0 % Basophils (%) (Auto) 0.6 0.0-2.0 % Neutrophils # (Auto) 6.6 1.6-8.6 10 ^3/uL Lymphocytes # (Auto) 3.0 0.4-5.4 10 ^3/uL Monocytes # (Auto) 0.8 0-1.3 10 ^3/uL Eosinophils # (Auto) 0.1 0-0.8 10 ^3/uL Basophils # (Auto) 0.1 0-0.2 10 ^3/uL Nucleated Red Blood Cells 0.1 % Prothrombin Time 11.1 9.3-11.8 sec Prothrombin Time INR 1.05 0.9-1.15 Activated Partial Thromboplast Time 24.8 24.5-34.5 SEC Sodium Level 135 L 136-145 mmol/L Potassium Level 4.0 3.5-5.1 mmol/L Chloride Level 102 98-107 mmol/L Carbon Dioxide Level 25 20-31 mmol/L Anion Gap 8 5-15 Blood Urea Nitrogen 12 9-23 mg/dL Creatinine 0.86 0.550-1.02 mg/dL Glomerular Filtration Rate Calc 65 >90 mL/min BUN/Creatinine Ratio 14.0 10.0-20.0 Serum Glucose 427 *H 74-106 mg/dL Calcium Level 9.5 8.7-10.4 mg/dL Magnesium Level 2.0 1.6-2.6 mg/dL B-Type Natriuretic Peptide 632.47 0-100 pg/mL Assessment Non ST-elevation myocardial infarction Rule out structural heart disease Insulin-dependent diabetes mellitus Hx of hypertension Hx of dyslipidemia Nicotine dependence Plan/Recommendation (Dr. Rich) Scheduled for urgent cardiac catheterization and coronary angiogram at first available. All risks and benefits of the procedure were discussed with the patient and daughter (next of kin) at bedside. They both agreed to proceed with intervention. All questions answered. In the meantime, obtain a transthoracic echocardiogram to rule out structural heart disease. Continue heparin drip per pharmacy protocol. Patient loaded on ASA and clopidogrel. Monitor ECG changes and notify. ACS protocol. Thank you for allowing us to participate in this patient's care. Please call if you have any questions or concerns. Critical care time: 40 min. This medical document was created using an electronic medical record system with voice recognition software and computerized dictation system. Although this document has been carefully reviewed, there might still be some phonetic and typographical errors. Occasional wrong-word or ``sound-alike substitutions may have occurred due to the inherent limitations of voice recognition software. These areas are purely typographical due to imperfections of the software programs and do not reflect any compromise in the patient's medical care. Please read the chart carefully and recognize, using context, where these substitutions have occurred. Plan discussed with: Patient, Daughter, Other Date of Service: Aug 02, 2024 Billing Provider: AMILCAR RICH MD Cardiology Common Codes: [id number] CARE 30-74 MIN [facility] Aug 02, 2024 07:58
[2024-08-02] MEDS: CLOPIDOGREL BISULFATE 75 MG TAB PO ONE (08:15)
[2024-08-02] MEDS: fentaNYL CITRATE 100 MCG/2 ML VL ONE (09:48)
[2024-08-02] MEDS: VERAPAMIL 2.5MG/ML INJ 2ML VIAL IV ONE (09:48)
[2024-08-02] MEDS: ANGIOMAX 250 MG VIAL IV ONE (09:48)
[2024-08-02] MEDS: MIDAZOLAM HCL 2MG/2ML 2ml VIAL (1mg/ml) ONE (09:49)
[2024-08-02] MEDS: LIDOCAINE 2%HCL (LOCAL ANESTH.) INJ 20ML MDV ONE (09:49)
[2024-08-02] MEDS: SODIUM CHL 0.9% 50 ML ONE (09:49)
[2024-08-02] MEDS: LIDOCAINE 2%HCL (LOCAL ANESTH.) INJ 10ml MDV ONE (09:58)
--- NOTE | 2024-08-02 10:40 | ECG ---
[facility] Test Date: 2024-08-01 Test Time: 22:11:24 Pat Name: JOELLE CHAPMAN Department: ER Room: 0245T Gender: F [employer]: MARIAM : 1935 Requested By: NALLELY FRIAS Order Number: [id number] Reading MD: Quinn Rios Measurements Intervals [place] Rate: 103 P: 80 TX: 134 QRS: 44 QRSD: 150 T: 192 QT: 383 QTc: 502 Interpretive Statements Sinus tachycardia Left bundle branch block Electronically Signed On 08-05-2024 17:17:03 PST by Quinn Rios Please click the below link to view image of tracing.
[2024-08-02] MEDS: ASPirin 81 mg TAB ONE (11:04)
--- NOTE | 2024-08-02 11:12 | DVHOP2 ---
Operative Report -Cardiology Report Details Date: 08/02/24 Preop Diagnosis: Non ST-elevation myocardial infarction Postop Diagnosis: Severe mid left circumflex stenosis likely the culprit of the patient's presentation fixed with a single drug-eluting stent three 0 x 18 sandra Mayes without any complication. Surgeon: Ross Mendoza MD Anesthesiologist: Conscious sedation using25 mcg of fentanyl as well as a mg IV midazolam. It was given under the direct supervision of myself the primary child nutrition assistant in the presence of the attending nurses. Patient was monitored for total of45 minutes without obvious complication. Anesthesia: Local Consent: The patient was informed of the risks and benefits of the procedure. These include but are not limited to complications of anesthesia, postoperative infection, incomplete relief of symptoms, recurrence of symptoms, damage to blood vessels, nerves and tendons, deep venous thrombosis, pulmonary embolism and possible need for repeat surgery in the future. Indications for Surgery: This is a Faroese-speaking mostly 88-year-old female who presented to the emergency room with a chief complaint of chest pain for two days. Describes her chest pain as retrosternal, radiating to the left inframammary area, non provoked, pressure-like, intermittent, and associated with generalized weakness. She underwent multiple 12 lead electrocardiogram revealing a sinus rhythm with an associated left bundle branch block. Troponin levels are trending up with latest >7800 ng/L. Significant medical history includes hypertension, dyslipidemia, insulin-dependent diabetes mellitus, and tobacco use since 20 y.o. including exposure x 17 pack-years. Name of Procedure Performed 1. Left heart catheterization with left ventricular end-diastolic pressure measurement. 2. Selective right and left coronary angiography utilizing right transradial approach. 3. Conscious sedation using25 mcg of fentanyl as well as a mg IV midazolam. 4. Primary PCI to the mid left circumflex culprit lesion using single drug- eluting stent. 5. Ultrasound-guided right femoral arterial access. 6. Vascular closure device application using six [place] Angio-Seal to the right femoral arteriotomy site. Procedure Details Procedure Details: Procedure note and vascular access: After informed consent was obtained, risks, benefits, complications, and alternatives were discussed in details with the patient who agrees to have the procedure done. At the beginning of the procedure, the right wrist in the right coronary area were prepped and draped in regular sterile fashion. Patient received conscious sedation using25 mcg of fentanyl as well as a mg of midazolam under the direct supervision of the primary child nutrition assistant. In the transradial attending nurses. Then a total of 1% xylocaine was applied to the right wrist area before a six [place]er freeze was a advanced using modified Seldinger technique. However because of difficulty advancing the six [place] sheath over the wire we switched to five [place] sheath started under type and we were able to advanced a five [place] sheath. Diagnostic five [place] tiger catheter was used to engage the right left coronary system. The patient received a cocktail of 2.5 mg of verapamil as well as 100 mcg of nitroglycerin intra-arterially to prevent vasospasm. She received 3000 of IV heparin after we crossed the aortic arch. Diagnostic angiography was performed. However after we found a culprit lesion to the left circumflex artery and due to lack of five [place] guiding catheter we have to switch to femoral arterial access. This was done under ultrasound guidance after 10 cc of 1% xylocaine was applied for anesthesia. A six [place] sheath was then placed without difficulty using modified Seldinger technique. Ascending angiography was performed to confirm the position of the puncture site above the bifurcation of the superficial femoral artery and the profunda. Angioplasty was done via the right femoral arterial access. Findings were as follows: 1. Left heart catheterization with left ventricular end-diastolic pressure measurement: With the help of a tiger five [place]er catheter as well as a J-tip wire we were able to cross the aortic valve and measured left ventricular end-diastolic pressure which was normal at 7 mm of mercury. There was no gradient across the aortic valve on the pullback. 2. Selective right and left coronary angiography utilizing right transradial approach: 1. The right coronary artery comes off the right coronary cusp there is small in diameter he will its large in its distribution it bifurcated distally into posterior descending artery as well as a large posterolateral branch. It is a right-dominant system. 2. The left main comes off the left coronary cusp it is widely patent without significant atherosclerotic plaquing or stenosis. It bifurcates distally into large left anterior descending artery and medium to large size left circumflex system. 3. The left anterior descending artery is a large vessel it gives rise to two large diagonal branches, it has diffuse disease attributed 60% but no discrete stenosis of critical lesion was identified. 4. The left circumflex artery is medium to large sized vessel it bifurcates distally into multiple obtuse marginal branches and two posterolateral branches. It has a mid lesion at 80-90% at the mid segment likely the culprit of the patient's presentation. 3. Primary angioplasty to the mid left circumflex artery: The anticoagulation was switched from heparin to intra venous bivalirudin. Patient already had received 300 mg of Plavix this morning in addition to 162 mg of aspirin. Six [place]er femoral arterial sheath was secured as outlined above, a Joyce left 3-0 guiding catheter is used to engage the left system. A horse power wire was C-arm blue any used to crosses the lesion of the mid left circumflex artery. The lesion was then pre-dilated using 2.5 x 15 and then stented using three 0 x 18 sandra Mayes drug-eluting stent with excellent final result. No obvious complication was seen. 4. Cine angiography of the right femoral artery: Ascending angiography was performed to the puncture site of the right femoral artery, confirming the position of the puncture site above the bifurcation of the superficial femoral artery and right profunda. 5. Right femoral arterial access closure using six [place]er Angio-Seal: After confirming the puncture site above the bifurcation the six [place] sheath was retracted over the wire and a six [place] Angio-Seal system was applied, after deploying the hemostatic plug, the dilator is retracted with a excellent hemostasis no complication was seen. Impression and plan: 1. Acute coronary syndrome in the presence of chest pain and troponin elevation confirming non ST-elevation myocardial infarction, the culprit is found to be the mid left circumflex artery at 90% stenosis. 2. Successful placement of a large stent to the mid left circumflex artery using3 x 18 sandra Mayes MAYNOR profile with excellent final result. 3. The right radial artery is a small caliber vessels that does not accommodate more than five [place]er system, for which the vascular access site was switched to the right femoral artery using ultrasound guidance, this eventually was closed using six [place] Angio-Seal without complication. 4. Patient would need long-term dual antiplatelet therapy with the aspirin and Plavix for a minimum of12 months and thereafter single antiplatelet indefinitely. I tried to explain to the patient the findings and the importance but she has mild dementia I would recommend that her daughter get education about her mom case and the importance of continuing dual antiplatelet therapy in addition to all other risk factor modifications 10 agents like high-dose statins. 5. Patient would need an echocardiogram to assess left ventricular systolic function and proceed with goal-directed therapy as indicated. Condition Good CS Clinical Frailty Scale CS Clinical Frailty Scale: Mildly Frail Stress Test Stress Test Performed: No Dominance Dominance: Right MELISSA MELISSA Flow: Post- Intervention (MELISSA-3), Pre-Intervention (MELISSA-2) Lesion Lesion Length: 18 Residual Stenosis post procedu: 0% Disposition ROSS MENDOZA MD Aug 02, 2024 11:12
--- NOTE | 2024-08-02 11:21 | DVHSR ---
APPROVED REPORT EXAM: Two-dimensional and M-mode echocardiogram with Doppler and color Doppler. Blood Pressure: 105/58 mmHg INDICATION Chest Pain RISK FACTORS Height: 58, Weight: 107 DIMENSIONS LVDd3.9 (3.8-5.7cm)LA (2D)3.9 (1.9-4.0cm)Aortic Root (2.0-3.7cm) LVDs3.2 (2.5-4.0cm)LA (MM) (1.9-4.0cm)Aortic Cusp Exc (1.5-2.0cm) EF (%) 40.0 (55-70%)Rt. Atrium3.7 (1.9-4.0cm)Asc. Aorta cm Mitral Valve MitralMitral Stenosis E wave1.60m/sMV Mean GR.6mmHg A wave1.77m/sMV Peak GR.137mmHg E/A ratio0.92D MVAcm2 DECEL [id number] 1/2 Lffy77bm IVRTmsDop MVA2.55cm2 Aortic Valve Aortic ValveAortic Stenosis V10.71m/Luh Mean GR.8mmHg V21.90m/Luh Peak GR.14mmHg Pulmonic Valve V21.17m/s Tricuspid Valve TR Velocity2.90m/s [id number] Other Information Technically limited study due to body habitus and patient position. Conclusion Moderately reduced left ventricular systolic function estimated ejection fraction 40%. In a global f ashion. There is a grade 1 diastolic dysfunction. Moderately reduced right ventricular systolic function. Normal right ventricular size and dimension. [id number] elevated right ventricular systolic criizdfq29 mm of mercury Moderately dilated left atrium. Normal-sized right atrium. The aortic valve is mildly thickened and sclerotic. The mitral valve has severe mitral annular calcification following the posterior annulus, there is mi ld mitral valve stenosis with a mean gradient of 6 mm of mercury. There is moderate mitral valve reg urgitation. The tricuspid valve appears mildly thickened there is mild tricuspid valve regurgitation. The pulmonary valve is grossly normal. No pericardial effusion. Normal
--- NOTE | 2024-08-02 12:09 | ECG ---
[facility] Test Date: 2024-08-02 Test Time: 07:57:39 Pat Name: JOELLE CHAPMAN Department: ER Room: 0245T Gender: F Patient Financial Rep: ZACHERY : [id number] Requested By: NALLELY FRIAS Order Number: [id number] Reading MD: Quinn Rios Measurements Intervals [place] Rate: 85 P: 77 [place]: 135 QRS: 18 QRSD: 142 T: 207 QT: 418 QTc: 497 Interpretive Statements Sinus rhythm Left bundle branch block Electronically Signed On 08-05-2024 17:18:38 PST by Quinn Rios Please click the below link to view image of tracing.
[2024-08-02] MEDS ORDERED: GLIP10TA9 PO (14:37)
[2024-08-02] MEDS ORDERED: APIX2.5T PO (14:37)
[2024-08-02 14:38] LABS: Basophils # (auto) 0 10 ^3/uL (0-0.2); Basophils % (auto) 0.3 % (0.0-2.0); Eosinophils # (auto) 0 10 ^3/uL (0-0.8); Eosinophils % (auto) 0.3 % (0.0-7.0); Hematocrit 39.3 % (36.0-46.0); Hemoglobin 12.8 g/dL (12.2-16.2); Lymphocytes # (auto) 1.4 10 ^3/uL (0.4-5.4); Lymphocytes % (auto) 11.6 % (10.0-50.0); Mean Corpuscular Hemoglobin 27.3 pg (28.0-32.0); Mean Corpuscular Hgb Conc. 32.6 g/dL (32.0-36.0); Mean Corpuscular Volume 83.5 fL (80.0-100.0); Monocytes # (auto) 0.7 10 ^3/uL (0-1.3); Monocytes % (auto) 5.6 % (0.0-12.0); Neutrophils # (auto) 10.2 10 ^3/uL (1.6-8.6); Neutrophils % (auto) 82.2 % (37.0-80.0); Platelet Count (auto) 230 10^3/uL (140-450); Red Cell Distribution Width 13.7 % (11.8-14.3); White Blood Cell 12.4 10^3/uL (4.4-10.8)
[2024-08-02] MEDS ORDERED: METF-370 PO (14:38)
[2024-08-02 14:49] LABS: INR 1.21 (0.9-1.15); Partial Thromboplastin Time 45.7 SEC (24.5-34.5); Prothrombin Time 12.6 sec (9.3-11.8)
--- NOTE | 2024-08-02 14:51 | DVHPN2 ---
Subjective 88-year-old female who was admitted for chest pain. She has a history of hypertension and diabetes She had a heart catheterization today and she was found to have a stenosis in the circumflex artery which was treated with PTCA and 1 stent placed, drug- eluting stent Now she is asymptomatic No chest pain Vital signs are stable Changes from previous H/P or p: Changes Objective Vitals Vital Signs Date Time Temp Pulse Resp B/P (MAP) Pulse Ox O2 Delivery O2 Flow Rate FiO2 08/02/24 11:57 73 19 110/54 (72) 96 08/02/24 10:58 97.4 97.4 08/02/24 08:04 Room Air* 0 21 21 Intake/Output Intake and Output 08/02/24 07:00 Intake Total 12 ml Balance 12 ml Intake IV Total 12 ml General Appearance: Alert, Cooperative, No acute distress, Other (Oriented x2) Lungs: Clear to auscultation, Normal air movement Cardiovascular: Regular rate, Normal S1, Normal S2 Abdomen: Normal bowel sounds, Soft, No tenderness Extremities: No edema Medications Current Medications Medications Dose Ordered Sig/Amelia Route Start Time Stop Time Status Last Admin Dose Admin Heparin Sodium/ Dextrose 250 ml @ 5.832 mls/ hr Q24H IV 08/02/24 02:30 UNV Diagnostic Test (Pha) 1 strip Q6HR 08/02/24 06:00 08/02/24 11:57 1 STRIP Insulin Human Regular Q6HR SC 08/02/24 06:00 08/02/24 06:26 4 UNITS Dextrose 50 ml UD PRN IV 08/02/24 04:30 Ondansetron HCl 4 mg Q4HP PRN IV 08/02/24 04:30 Nitroglycerin 0.4 mg Q5MINP PRN SL 08/02/24 04:30 Morphine Sulfate 2 mg Q30M PRN IV 08/02/24 04:30 Aspirin 81 mg DAILY PO 08/03/24 10:00 Clopidogrel Bisulfate 75 mg DAILY PO 08/03/24 10:00 Sacubitril/ Valsartan 0.5 tab BID PO 08/02/24 22:00 Spironolactone 12.5 mg DAILY PO 08/03/24 10:00 Metoprolol Tartrate 12.5 mg BID PO 08/02/24 22:00 Empaglifozin 10 mg DAILY PO 08/03/24 10:00 Atorvastatin Calcium 40 mg HS PO 08/02/24 22:00 Laboratory Results Chemistry Test 08/01/24 22:21 08/02/24 14:17 Calcium Level 9.5 mg/dL (8.7-10.4) Pending Magnesium Level 2.0 mg/dL (1.6-2.6) Pending Albumin Pending Total Protein Pending Coagulation Test 08/01/24 22:21 08/02/24 14:17 Prothrombin Time 11.1 sec (9.3-11.8) Pending Prothrombin Time INR 1.05 (0.9-1.15) Pending Activated Partial Thromboplast Time 24.8 SEC (24.5-34.5) Pending Lipid panel Test 08/02/24 14:17 Cholesterol Level Pending HDL Cholesterol Pending Triglycerides Level Pending Cardiac Markers Test 08/01/24 22:21 B-Type Natriuretic Peptide 632.47 pg/mL (0-100) LFT Test 08/02/24 14:17 Alanine Aminotransferase (ALT) Pending Alkaline Phosphatase Pending Aspartate Amino Transferase (AST) Pending Total Bilirubin Pending HgA1c, TSH Test 08/02/24 14:17 Hemoglobin A1c Pending Thyroid Stimulating Hormone (TSH) Pending Assessment/Plan Assessment/Plan NSTEMI Coronary artery disease status post PTCA to circumflex artery Insulin-dependent diabetes mellitus Hypertension Dyslipidemia Nicotine dependence Dementia Plan Aspirin 81 mg a day Plavix 75 mg daily Lipitor 40 mg daily Jardiance 10 mg daily Metoprolol 12.5 mg twice a day Aldactone 12.5 mg daily Entresto Watch the patient overnight Discussed with the daughter at the bedside Full code Code status and advance directives discussed with the daughter at the bedside for 15 minutes Discharge planning for tomorrow Plan discussed with: Patient Date of Service: Aug 02, 2024 Billing Provider: JUNIOR BARRAGAN MD Common Visit Codes: [id number] INP/OBS CARE(HIGH) Secondary Visit Codes: [id number] CARE PLAN 30 MINUTES JUNIOR BARRAGAN MD Aug 02, 2024 14:51
[2024-08-02 14:53] LABS: Alanine Aminotransferase 25 U/L (7-40); Albumin 3.7 g/dL (3.2-4.8); Alkaline Phosphatase 105 U/L (46-116); Anion Gap 7 (5-15); Aspartate Aminotransferase 153 U/L (13-40); BUN/Creatinine Ratio 14.5 (10.0-20.0); Bilirubin, Total 1.1 mg/dL (0.2-1.0); Blood Urea Nitrogen 10 mg/dL (9-23); Calcium 9.1 mg/dL (8.7-10.4); Carbon Dioxide 25 mmol/L (20-31); Chloride 108 mmol/L (98-107); Cholesterol 179 mg/dL (< 200); Glucose 236 mg/dL (74-106); HDL Cholesterol 52 mg/dL (40-59); LDL Cholesterol 106 mg/dL (< 100); Magnesium 1.8 mg/dL (1.6-2.6); Potassium 4.1 mmol/L (3.5-5.1); Sodium 140 mmol/L (136-145); Total Protein 6.1 g/dL (5.7-8.2); Triglycerides 122 mg/dL (< 150)
[2024-08-02] MEDS: ATORVASTATIN 20 MG TAB PO SCH (21:36)
[2024-08-02] MEDS: SACUBITRIL-VALSARTAN 24mg/26mg TAB PO SCH (21:36)
[2024-08-02] MEDS: METOPROLOL TARTRATE 25 MG TAB PO SCH (22:00)
[2024-08-03 05:00] VITALS: BP 100/49; PULSE 74; RESP 16; TEMP 98.3; O2SAT 96
[2024-08-03 07:12] LABS: Basophils # (auto) 0 10 ^3/uL (0-0.2); Basophils % (auto) 0.3 % (0.0-2.0); Eosinophils # (auto) 0.1 10 ^3/uL (0-0.8); Eosinophils % (auto) 1.2 % (0.0-7.0); Hematocrit 37.2 % (36.0-46.0); Hemoglobin 12.7 g/dL (12.2-16.2); Lymphocytes # (auto) 2.4 10 ^3/uL (0.4-5.4); Lymphocytes % (auto) 24.3 % (10.0-50.0); Mean Corpuscular Hemoglobin 28.3 pg (28.0-32.0); Mean Corpuscular Hgb Conc. 34.2 g/dL (32.0-36.0); Mean Corpuscular Volume 82.6 fL (80.0-100.0); Monocytes # (auto) 0.9 10 ^3/uL (0-1.3); Monocytes % (auto) 9.7 % (0.0-12.0); Neutrophils # (auto) 6.3 10 ^3/uL (1.6-8.6); Neutrophils % (auto) 64.5 % (37.0-80.0); Nucleated Red Blood Cells % 0.2 %; Platelet Count (auto) 226 10^3/uL (140-450); Red Blood Cells 4.51 10^6/uL (4.0-5.20); Red Cell Distribution Width 13.8 % (11.8-14.3); White Blood Cell 9.8 10^3/uL (4.4-10.8)
[2024-08-03 07:20] LABS: Alanine Aminotransferase 22 U/L (7-40); Alkaline Phosphatase 94 U/L (46-116); Anion Gap 9 (5-15); Aspartate Aminotransferase 103 U/L (13-40); BUN/Creatinine Ratio 13.5 (10.0-20.0); Blood Urea Nitrogen 10 mg/dL (9-23); Calcium 9.2 mg/dL (8.7-10.4); Carbon Dioxide 25 mmol/L (20-31); Chloride 109 mmol/L (98-107); Glucose 121 mg/dL (74-106); Potassium 3.7 mmol/L (3.5-5.1); Sodium 143 mmol/L (136-145)
[2024-08-03 07:21] LABS: Bilirubin, Total 1.5 mg/dL (0.2-1.0); Total Protein 5.8 g/dL (5.7-8.2)
[2024-08-03 07:22] LABS: Albumin 3.5 g/dL (3.2-4.8)
[2024-08-03 08:00] VITALS: RESP 18; O2SAT 96
[2024-08-03 08:50] VITALS: BP 113/46; PULSE 85; RESP 17; TEMP 98.1; O2SAT 95
[2024-08-03 09:00] VITALS: BP 103/45; PULSE 81; RESP 20; TEMP 98.6; O2SAT 96
[2024-08-03] MEDS: SPIRONOLACTONE 25 MG TAB PO SCH (09:37)
[2024-08-03] MEDS: ASPirin 81 mg TAB PO SCH (09:37)
[2024-08-03] MEDS: EMPAGLIFLOZIN 10 MG TAB PO SCH (09:37)
[2024-08-03] MEDS: CLOPIDOGREL BISULFATE 75 MG TAB PO SCH (09:39)
[2024-08-03] MEDS ORDERED: SPIR25TA PO (09:50)
[2024-08-03] MEDS ORDERED: SACU1TAB PO (09:50)
[2024-08-03] MEDS ORDERED: METO25TA93 PO (09:50)
[2024-08-03] MEDS ORDERED: CLOP75TA70 PO (09:50)
[2024-08-03 10:06] VITALS: BP 106/47; PULSE 75; RESP 18; TEMP 37; O2SAT 96
--- NOTE | 2024-08-03 11:30 | DVHPN2 ---
Consult Progress Note Subjective Patient reports: No new complaints, Feels better Review of Systems: HEENT:Normal, HEENT:Abnormal, CVS:Normal, CVS:Abnormal Objective vital signs Vital Sign Date Time Temp Pulse Resp B/P (MAP) Pulse Ox O2 Delivery O2 Flow Rate FiO2 08/03/24 10:06 37.0 75 18 96 08/03/24 09:00 103/45 (64) 08/03/24 08:00 Room Air* 0 21 Total Intake and Output 08/02/24 08/02/24 08/03/24 15:00 23:00 07:00 Intake Total 81 ml 575 ml 250 ml Balance 81 ml 575 ml 250 ml medications Current Medications Medications Dose Ordered Sig/Amelia Route Start Time Stop Time Status Last Admin Dose Admin Heparin Sodium/ Dextrose 250 ml @ 5.832 mls/ hr Q24H IV 08/02/24 02:30 UNV Diagnostic Test (Pha) 1 strip Q6HR 08/02/24 06:00 08/03/24 11:25 1 STRIP Insulin Human Regular Q6HR SC 08/02/24 06:00 08/03/24 11:24 4 UNITS Dextrose 50 ml UD PRN IV 08/02/24 04:30 Ondansetron HCl 4 mg Q4HP PRN IV 08/02/24 04:30 Nitroglycerin 0.4 mg Q5MINP PRN SL 08/02/24 04:30 Morphine Sulfate 2 mg Q30M PRN IV 08/02/24 04:30 Aspirin 81 mg DAILY PO 08/03/24 10:00 08/03/24 09:37 81 MG Clopidogrel Bisulfate 75 mg DAILY PO 08/03/24 10:00 08/03/24 09:39 75 MG Sacubitril/ Valsartan 0.5 tab BID PO 08/02/24 22:00 08/03/24 09:38 0.5 TAB Spironolactone 12.5 mg DAILY PO 08/03/24 10:00 08/03/24 09:37 12.5 MG Metoprolol Tartrate 12.5 mg BID PO 08/02/24 22:00 Empaglifozin 10 mg DAILY PO 08/03/24 10:00 08/03/24 09:37 10 MG Atorvastatin Calcium 40 mg HS PO 08/02/24 22:00 08/02/24 21:36 40 MG Examination: GENERAL:Normal, HEENT:Normal, NECK:Normal laboratory and microbiology Laboratory Tests 08/03/24 05:57 Test 08/03/24 05:57 Range/Units Serum Glucose 121 H 74-106 mg/dL Problem List/Assessment/Plan Problems(with codes): (1) Non-STEMI (non-ST elevated myocardial infarction) Problem List/Assessment/Plan 88-year-old lady status post angioplasty to a tight mid left circumflex stenosis using single drug-eluting stent. Patient is doing much better she will be discharged soon I would recommend continuing dual antiplatelet therapy indefinitely in addition to beta-jazmín high-dose statins as well as goal- directed therapy. Patient was advised to continue on dual antiplatelet therapy I would recommend discussing with the her daughter before she leaves and reconciled or her medications including dual antiplatelet therapy. She would need follow-up in the clinic in one week time and thereafter every three months. Plan discussed with: Patient, Daughter Date of Service: Aug 03, 2024 Billing Provider: AMILCAR RICH MD Common Visit Codes: [id number] INP/OBS CARE(HIGH) AMILCAR RICH MD Aug 03, 2024 11:30
--- NOTE | 2024-08-03 16:02 | DVHDS2 ---
Discharge Summary Date of Admission Aug 02, 2024 at 04:25 Date of Discharge: Aug 03, 2024 Labs/Diagnostic Data: Laboratory Results Test 08/03/24 10:50 08/03/24 05:57 08/02/24 14:17 08/01/24 22:21 POC Glucose 249 mg/dl (70-106) White Blood Count 9.8 10^3/uL (4.4-10.8) Red Blood Count 4.51 10^6/uL (4.0-5.20) Hemoglobin 12.7 g/dL (12.2-16.2) Hematocrit 37.2 % (36.0-46.0) Mean Corpuscular Volume 82.6 fL (80.0-100.0) Mean Corpuscular Hemoglobin 28.3 pg (28.0-32.0) Mean Corpuscular Hemoglobin Concent 34.2 g/dL (32.0-36.0) Red Cell Distribution Width 13.8 % (11.8-14.3) Platelet Count 226 10^3/uL (140-450) Mean Platelet Volume 9.8 fL (6.9-10.8) Neutrophils (%) (Auto) 64.5 % (37.0-80.0) Lymphocytes (%) (Auto) 24.3 % (10.0-50.0) Monocytes (%) (Auto) 9.7 % (0.0-12.0) Eosinophils (%) (Auto) 1.2 % (0.0-7.0) Basophils (%) (Auto) 0.3 % (0.0-2.0) Neutrophils # (Auto) 6.3 10 ^3/uL (1.6-8.6) Lymphocytes # (Auto) 2.4 10 ^3/uL (0.4-5.4) Monocytes # (Auto) 0.9 10 ^3/uL (0-1.3) Eosinophils # (Auto) 0.1 10 ^3/uL (0-0.8) Basophils # (Auto) 0 10 ^3/uL (0-0.2) Nucleated Red Blood Cells 0.2 % Sodium Level 143 mmol/L (136-145) Potassium Level 3.7 mmol/L (3.5-5.1) Chloride Level 109 mmol/L (98-107) Carbon Dioxide Level 25 mmol/L (20-31) Anion Gap 9 (5-15) Blood Urea Nitrogen 10 mg/dL (9-23) Creatinine 0.74 mg/dL (0.550-1.02) Glomerular Filtration Rate Calc 78 mL/min (>90) BUN/Creatinine Ratio 13.5 (10.0-20.0) Serum Glucose 121 mg/dL (74-106) Calcium Level 9.2 mg/dL (8.7-10.4) Total Bilirubin 1.5 mg/dL (0.2-1.0) Aspartate Amino Transferase (AST) 103 U/L (13-40) Alanine Aminotransferase (ALT) 22 U/L (7-40) Alkaline Phosphatase 94 U/L (46-116) Total Protein 5.8 g/dL (5.7-8.2) Albumin 3.5 g/dL (3.2-4.8) Prothrombin Time 12.6 sec (9.3-11.8) Prothrombin Time INR 1.21 (0.9-1.15) Activated Partial Thromboplast Time 45.7 SEC (24.5-34.5) Hemoglobin A1c 10.5 % A1C (<5.7) Magnesium Level 1.8 mg/dL (1.6-2.6) Troponin I High Sensitivity > 58939 ng/L (</=34) Triglycerides Level 122 mg/dL (< 150) Cholesterol Level 179 mg/dL (< 200) LDL Cholesterol 106 mg/dL (< 100) HDL Cholesterol 52 mg/dL (40-59) Thyroid Stimulating Hormone (TSH) 3.08 uIU/mL (0.55-4.78) B-Type Natriuretic Peptide 632.47 pg/mL (0-100) Other Laboratory Tests 08/03/24 05:57 Brief Hx & Hospital Course: 88-year-old female who was admitted for chest pain and was taken to the custodial laborer due to NSTEMI and elevated troponin The heart catheterization showed circumflex artery disease requiring PTCA and 1 drug-eluting stent placement She was observed overnight She is doing well now She is asymptomatic No chest pain The right groin area shows no hematoma and no pain The patient is ambulating with no assistance She is stable for discharge on aspirin and Plavix Apparently she had DVT before and she was taking Eliquis but she stopped it few months ago and therefore she does not needed Continue aspirin and Plavix Continue metoprolol Continue Entresto Discontinue Eliquis Discontinue lisinopril Final diagnoses: NSTEMI Coronary artery disease status post PTCA to circumflex artery Insulin-dependent diabetes mellitus Hypertension Dyslipidemia Nicotine dependence Dementia Condition at Discharge: Good Final Diagnosis/Problems List NSTEMI Coronary artery disease status post PTCA to circumflex artery Insulin-dependent diabetes mellitus Hypertension Dyslipidemia Nicotine dependence Dementia Discharge Disposition: Home SNF Discharge Will this Physician continue t: No Discharge Instruct/Medications Diet: Cardiac 2g Na,low cholest Activity: No Restrictions, As Tolerated Follow Up/Referral: PCP ELIZABET Discharge Statement: "Patient was advised to return to the ER or call 911 if any headaches, dizziness, shortness of breath, chest pain, abdominal pain, bleeding, fevers, or worsening of medical condition. Patient was counseled about treatment plan, medications, possible side effects, patientverbalized understanding. All questions were answered to the best of my ability. This discharge took greater then 30 minutes in planning, reviewing documentation, counseling the patient, and discussing with other team members." ASSESSMENT ASSESSMENT Assessment NSTEMI Coronary artery disease status post PTCA to circumflex artery Insulin-dependent diabetes mellitus Hypertension Dyslipidemia Nicotine dependence Dementia Date of Service: Aug 03, 2024 Billing Provider: JUNIOR BARRAGAN MD Common Visit Codes: [id number] DISCH DAY >30min JUNIOR BARRAGAN MD Aug 03, 2024 16:02
== END 2024-08-03 12:20 | disposition home or self-care (01) | DRG 321 ==
LOC: ER 22:05 → TELE 08-02 04:25 → TELE-EAST 08-02 12:28
PROVIDERS: ADMIT Nurse Practitioner; ATTEND Internal Medicine Geriatric Medicine
PROC: 027034Z Dilation of Coronary Artery, One Artery with Drug-eluting Intraluminal Device, Percutaneous Approach (ICD-10-PCS; principal; 2024-08-02)
PROC: 4A023N7 Measurement of Cardiac Sampling and Pressure, Left Heart, Percutaneous Approach (ICD-10-PCS; 2024-08-02)
PROC: B211YZZ Fluoroscopy of Multiple Coronary Arteries using Other Contrast (ICD-10-PCS; 2024-08-02)
PROC: B44FZZZ Ultrasonography of Right Lower Extremity Arteries (ICD-10-PCS; 2024-08-02)
DX: I21.4 Non-ST elevation (NSTEMI) myocardial infarction (principal); I50.23 Acute on chronic systolic (congestive) heart failure; E11.9 Type 2 diabetes mellitus without complications; E78.5 Hyperlipidemia, unspecified; F17.200 Nicotine dependence, unspecified, uncomplicated; I25.10 Atherosclerotic heart disease of native coronary artery without angina pectoris; F03.A0 Unspecified dementia, mild, without behavioral disturbance, psychotic disturbance, mood disturbance, and anxiety; I44.7 Left bundle-branch block, unspecified; Z96.642 Presence of left artificial hip joint; Z79.4 Long term (current) use of insulin; Z98.61 Coronary angioplasty status; Z79.82 Long term (current) use of aspirin; Z79.899 Other long term (current) drug therapy; Z86.718 Personal history of other venous thrombosis and embolism; Z79.02 Long term (current) use of antithrombotics/antiplatelets; I11.0 Hypertensive heart disease with heart failure
CPT/HCPCS: 36415; 71045; 80048; 80053; 80061; 82962; 83036; 83735; 83880; 84443; 84484; 85025; 85610; 85730; 92941; 93005; 93306; 93458; 99152; 99291; C1894; G0378; J1815; J2003; J2250

== ENCOUNTER → 2024-11-21 | Outpatient (CLI) | payer MEDICARE, OTHER ==
[~2024-11-21] MED LIST changes: +CLOP75TA70 PO; +GLIP10TA9 PO; -LISI20TA56 PO; +METF-370 PO; +METO25TA93 PO; +SACU1TAB PO; +SPIR25TA PO
[2024-11-21 10:27] LABS: Alanine Aminotransferase 12 U/L (7-40); Alkaline Phosphatase 109 U/L (46-116); Anion Gap 6 (5-15); Calcium 9.5 mg/dL (8.7-10.4); Carbon Dioxide 28 mmol/L (20-31); Potassium 4.4 mmol/L (3.5-5.1); Sodium 142 mmol/L (136-145)
[2024-11-21 10:29] LABS: BUN/Creatinine Ratio 20.6 (10.0-20.0); Blood Urea Nitrogen 14 mg/dL (9-23); Total Protein 6.7 g/dL (5.7-8.2)
[2024-11-21 10:30] LABS: Albumin 4.2 g/dL (3.2-4.8)
[2024-11-21 10:31] LABS: Bilirubin, Total 0.7 mg/dL (0.2-1.0)
[2024-11-21 10:39] LABS: Aspartate Aminotransferase 10 U/L (13-40); Chloride 108 mmol/L (98-107); Glucose 110 mg/dL (74-106)
== END | disposition home or self-care (01) ==
LOC: LAB 09:33
PROVIDERS: ATTEND Internal Medicine
DX: I25.10 Atherosclerotic heart disease of native coronary artery without angina pectoris (principal); E11.65 Type 2 diabetes mellitus with hyperglycemia; E78.5 Hyperlipidemia, unspecified
CPT/HCPCS: 36415; 80053; 83036